=== PATIENT | female | born 1970 | race Caucasian/White ===

== ENCOUNTER 2018-10-16 06:00 | Day surgery (SDC) | payer OTHER ==
[~2018-10-16] VITALS: Ht 162.6 cm; Wt 96.2 kg
[~2018-10-16 06:00] MED LIST: ASCORBIC ACID500 M3 PO; CYCLOBENZAPRINE10 MG PO; FENOFIBRATE160 MG PO; GABAPENTIN300 MG PO; GEODON80 MG NG; GLIPIZIDE XL2.5 MG PO; KEFLEX500 MG PO; LEVOTHYROXINE50 MCG PO; LORAZEPAM1 MG PO; MELATONIN3 MG PO; METOPROLOL SUCC25 MG PO; PRILOSEC40 MG PO; PROZAC20 MG PO; ROSUVASTATIN CAL5 MG PO; VITAMIN D35000 UNIT PO; ZOCOR40 MG PO
--- NOTE | 2018-10-16 08:56 | NUR ---
10/16/18 0856 [facility] ARRIVED IN PACU SLEEPY WITH NO C/O'S. ABD SOFT. PASSING FLATUS. 0819 BLOOD SUGAR 134. 0825 AWAKE SITTING UP IN BED. OXYGEN REMOVED. SATS 99% ON RA. 0835 SIPPING ON JUICE. DC INSTRUCTIONS GIVEN TO PT/FAMILY.
--- NOTE | 2018-10-16 10:51 | NUR ---
PT RESTING IN BED, ALERT, ORIENTED AND SUPPORTED BY HER FAMILY. FIRST EGD, PREVIOUS SCOPES, AND SEEMED ALITTLE ANXIOUS. I GET THE FEELING HER FAMILY HAS SOMETHING TO DO WITH THIS. HER THANKED ME FOR COMING BY. I GAVE THEM A BLESSING, WILL FOLLOW NEEDED
--- NOTE | 2018-10-16 10:52 | OR ---
[facility] [address] [place], [place] [address] Signed DATE OF OPERATION: 10/16/2018 SURGEON: Zoey Jackson MD PREOPERATIVE DIAGNOSES: 1. Anemia. 2. Gastroesophageal reflux disease. 3. Heartburn. 4. Maternal great uncles x3, maternal grandmother and mother with colon cancer. 5. Change in bowel habits with diarrhea, change in constipation. POSTOPERATIVE DIAGNOSES: 1. Small sized hiatal hernia. 2. 4 mm polyp at 25 cm. PROCEDURES: 1. EGD with CLOtest and biopsy of the duodenum and antrum. 2. Colonoscopy with hot biopsy. ESTIMATED BLOOD LOSS: None. INDICATIONS: Pam is a 48-year-old female, asked to see me for both upper and lower endoscopy. She describes being anemic even back as a child. Currently, her hemoglobin is low, but her mean cell volume is fine. She has been on iron pills starting around the time of her pregnancies. She said the anemia is never really corrected itself. She talks about heartburn and acid reflux as well. She is taking omeprazole. She is also diabetic. In addition, she explained that she has three maternal great uncles, maternal grandmother and mother have all developed colon cancer. Her mother was 59 when she developed colon cancer and still alive today. She has also had a change in bowel habits for the last 6 months. She had a lifelong diarrhea, but now has constipation. She is not sure why. She stopped taking the iron pills and the constipation has remained. Consequently, she was asked to see me for both upper and lower endoscopy. I met with Pam in the office. I gave her pamphlets on both upper and lower endoscopy. We reviewed the nature of the 2 tests along with the risks including, but not limited to gas, bloating, crampy abdominal pain, bleeding, perforation, requiring surgery, and missed diagnosis. We also discussed the need for IV conscious sedation. Pam has a long list of medical issues as well as a long list of allergies. Consequently, we asked that an anesthesia provider help us with increased monitoring sedation with propofol. That proved to be a Electronically Signed By: ZOEY JACKSON MD 10/16/18 1052 PATIENT NAME: PAM BAER DWAYNE OPERATIVE REPORT DATE OF : 72 REPORT #: [id number] PHYSICIAN: ZOEY JACKSON MD PCP: FRANKO ORTIZ REPORT IS CONFIDENTIAL AND NOT TO BE RELEASED WITHOUT AUTHORIZATION [facility] [address] [place], [place] [address] Signed whittington decision. Pam had expressed understanding and wished to proceed. DESCRIPTION OF PROCEDURE: Pam was taken into our endoscopy suite and placed in the supine semi-recumbent position. The posterior oropharynx was anesthetized with Hurricaine spray. A bite block was utilized for the case. Pam was given IV propofol per our nurse building construction teacher. The adult gastroscope was introduced and advanced readily out into the third portion of the duodenum under direct visualization of camera without difficulty. We had taken a biopsy of the duodenum because of the prior history of diarrhea. Otherwise, the duodenum and pyloric channel looked unremarkable. Her stomach looked unremarkable. Upon retroflexion of the scope, she does have a small hiatal hernia. We did take a biopsy of the antrum for CLOtest as well as pathologic review. The scope was then withdrawn up through the area of the GE junction, which was compliant without stricture. There was no evidence of gastric or esophageal varices. She has mild disruption to the Z-line. There was no Hill's mucosa, no distal esophagitis. The middle and upper esophagus were unremarkable. After this, the gas was suctioned out and the gastroscope removed. Pam tolerated her upper endoscopy quite well. Pam was then rotated into the left lateral decubitus position. She was maintained on IV sedation with propofol per our nurse building construction teacher. A digital rectal exam was performed and this was unremarkable. The adult colonoscope was introduced and advanced under direct visualization of camera into the cecum itself. It took some extra sedation and abdominal compression in order to advance the scope. She had a couple of areas of liquid particulate stool matter. Most of that was suctioned and irrigated out. We could see the Crohn's foot, appendiceal orifice, and the ileocecal valve. We had taken pictures for photodocumentation. The scope was slowly withdrawn. She had just a small 4 mm polyp back at 25 cm. It was easily removed with the help of hot biopsy forceps. The rectum itself was unremarkable. Upon retroflexion of the scope, there was no additional pathology noted above the anal canal. After this, the gas was suctioned out and the colonoscope removed. Pam tolerated the lower endoscopy quite well. RECOMMENDATIONS: I will see Pam back in my office in 7 to 14 days to review her results. Zoey Jackson MD ALB/MODL /[id number] Electronically Signed By: ZOEY JACKSON MD 10/16/18 1052 PATIENT NAME: GRIFFOPAM [facility] OPERATIVE REPORT DATE OF : 72 REPORT #: [id number] PHYSICIAN: ZOEY JACKSON MD PCP: FRANKO ORTIZ REPORT IS CONFIDENTIAL AND NOT TO BE RELEASED WITHOUT AUTHORIZATION [facility] [address] [place] [place], [place] [address] Signed cc: MD Franko Han PA Copies: ZOEY JACKSON MD, KRISTIN H PA ~ Electronically Signed By: ZOEY JACKSON MD 10/16/18 1052 PATIENT NAME: PAM BAER DWAYNE OPERATIVE REPORT DATE OF : 72 REPORT #: [id number] PHYSICIAN: ZOEY JACKSON MD PCP: FRANKO ORTIZ REPORT IS CONFIDENTIAL AND NOT TO BE RELEASED WITHOUT AUTHORIZATION
== END 2018-10-16 08:45 | disposition home or self-care (01) ==
LOC: OPS 06:00 → DS 06:00 → OPS 06:45 → DS 06:45 → OPS 08:45
PROVIDERS: Colon & Rectal Surgery
PROC: 0DB98ZX Excision of Duodenum, Via Natural or Artificial Opening Endoscopic, Diagnostic (ICD-10-PCS; 2018-10-16)
PROC: 0DBE8ZZ Excision of Large Intestine, Via Natural or Artificial Opening Endoscopic (ICD-10-PCS; principal; 2018-10-16 06:45)
PROC: 0DB78ZX Excision of Stomach, Pylorus, Via Natural or Artificial Opening Endoscopic, Diagnostic (ICD-10-PCS; 2018-10-16 06:45)
DX: K63.5 Polyp of colon (principal); K29.50 Unspecified chronic gastritis without bleeding; K44.9 Diaphragmatic hernia without obstruction or gangrene; K21.9 Gastro-esophageal reflux disease without esophagitis; D64.9 Anemia, unspecified; Z80.0 Family history of malignant neoplasm of digestive organs; K59.00 Constipation, unspecified; E78.1 Pure hyperglyceridemia; E03.9 Hypothyroidism, unspecified; E11.9 Type 2 diabetes mellitus without complications; M79.7 Fibromyalgia; D50.9 Iron deficiency anemia, unspecified; Z88.5 Allergy status to narcotic agent; Z88.8 Allergy status to other drugs, medicaments and biological substances; Z79.899 Other long term (current) drug therapy; Z79.84 Long term (current) use of oral hypoglycemic drugs
CPT/HCPCS: 86677; J2704; J7120

== ENCOUNTER 2021-12-31 14:58 | Emergency (ER) | payer OTHER ==
[~2021-12-31] VITALS: Ht 162.6 cm; Wt 88.5 kg
[~2021-12-31 14:58] MED LIST changes: +ANTIFUNGAL30 G1 TOP; +ASPIRIN81 MG PO; +CELEBREX200 MG PO; +FRONT WHEELED WALKER XX; +HYDROXYZINE HCL25 MG PO; +LACTULOSE20 GM/30 M PO; +LIPITOR20 MG PO; +OMEGA-31000 MG PO; +UREA198 GM TOP; +ZIPRASIDONE HCL80 MG PO
--- OUTSIDE RECORDS SUMMARY | 2021-12-31 15:00 | XMS ---
PreManage Notification: TONI BAER Security Life Scientists Events No recent Security Events currently on file CRITERIA MET - [facility] - [facility] - 2 Visits in 30 Days CARE PROVIDERS There are no care providers on record at this time. Jenifer has no Care Guidelines for this patient. Jaky VISIT COUNT (12 MO.) [facility] NOTE: Visits indicate total known visits. ED/UCC VISIT TRACKING (12 MO.) 12/31/2021 14:59 [facility] [place] [facility] Emergency COMPLAINT: - CONSTIPATION, ALTERED MENTAL STATUS 12/28/2021 19:02 [facility] [place] TYPE: Emergency COMPLAINT: - STROKE SYMPTOMS INPATIENT VISIT TRACKING (12 MO.) 12/28/2021 19:03 [facility] [place] TYPE: Observation COMPLAINT: - ALTERED MENTAL STATUS, POSSIBLE SEIZURE [email or web address]
== END 2021-12-31 18:32 | disposition home or self-care (01) ==
LOC: ED 14:58
DX: R41.0 Disorientation, unspecified (principal); K72.90 Hepatic failure, unspecified without coma; E11.40 Type 2 diabetes mellitus with diabetic neuropathy, unspecified; Z91.018 Allergy to other foods; Z88.0 Allergy status to penicillin; Z88.5 Allergy status to narcotic agent; Z88.8 Allergy status to other drugs, medicaments and biological substances; Z79.899 Other long term (current) drug therapy; Z79.84 Long term (current) use of oral hypoglycemic drugs
CPT/HCPCS: 36415; 80053; 81001; 82140; 85025; 96361; 96374; 99284-25; J2405; J7040

== ENCOUNTER 2022-02-22 07:45 | Day surgery (SDC) | payer OTHER ==
[~2022-02-22] VITALS: Ht 162.6 cm; Wt 87.7 kg
[~2022-02-22 07:45] MED LIST changes: +8 HOUR650 MG PO; +ADULT LOW DOSE81 MG PO; +AMBIEN10 MG PO; +ATORVASTATIN CA20 MG PO; +CLONIDINE HCL0.1 MG PO; +FLUOXETINE HCL20 M1 PO; +IBU800 MG PO; +INVOKANA100 MG PO; +LORAZEPAM2 MG PO; +OXYBUTYNIN CHLOR5 MG PO; +ROPINIROLE HCL0.5 MG PO; +SIMVASTATIN40 MG PO
--- NOTE | 2022-02-22 10:03 | NUR ---
02/22/22 Scottie3 Margaret Hoover 0974-PATIENT ARRIVED TO PACU ON 4L NC ORAL AIRWAY IN PLACE. NONAROUSABLE. LAYING LEFT LATERAL ABDOMEN SOFT. IVF INFUSING. SR. 0959-PATIENT AROUSING TO VERBAL STIMULI OPENING EYES ORAL AIRWAY REMOVED. DENIES PAIN OR NAUSEA. 4L NC RR EVEN 100%
--- NOTE | 2022-02-22 12:57 | OR ---
[facility] [address] [place], [place] [address] Signed DATE OF OPERATION: 02/22/2022 SURGEON: Zoey Jackson MD PREOPERATIVE DIAGNOSES: 1. Chronic diarrhea and constipation. 2. Recent hepatitis with encephalopathy. 3. Small hiatal hernia and acid reflux. 4. Maternal great uncles x3 with colon cancer. 5. Maternal great grandmother with colon cancer. 6. Mother with colon cancer, age 59. 7. Chronic anemia. 8. Personal history of hyperplastic colonic polyps in 2019 at age 48. POSTOPERATIVE DIAGNOSES: 1. Small hiatal hernia. 2. Mild diffuse gastritis. 3. Minimal sigmoid diverticulosis. 4. Minimal internal and external hemorrhoids. PROCEDURES: 1. EGD with CLOtest and biopsies of the duodenum, pyloric bulb and antrum. 2. Colonoscopy with multiple random cold biopsies. ESTIMATED BLOOD LOSS: None. INDICATIONS: Pam is a 51-year-old female with a long history of diabetes, sleep apnea, chronic alternating diarrhea and constipation, acid reflux and a recent episode of hepatitis involving encephalopathy. She was in the hospital. Her blood work and ultrasound were nondiagnostic. She is apparently scheduled to see her toolman, Dr. Brito, in [place], [place]. She came to see me for upper and lower endoscopy back in 2019 at the age of 48. We know that all three of her maternal grand uncles had colon cancer. Her maternal great grandmother had colon cancer. Her mother had colon cancer at age 59. She remembers being anemic clear back to her childhood. She has never seen a engineering faculty to her knowledge. She required monitored anesthesia care due to her medical issues and her long list of allergies back in 2019. We did find a small hyperplastic polyp and a small hiatal hernia. Her CLOtest was negative for H pylori. We asked her to followup in 5 years for repeat colonoscopy due to her family history. Electronically Signed By: ZOEY JACKSON MD 02/22/22 1257 PATIENT NAME: PAM BAER OPERATIVE REPORT DATE OF : 72 REPORT #: [id number] PHYSICIAN: ZOEY JACKSON MD PCP: WYATT BULLOCK MD REPORT IS CONFIDENTIAL AND NOT TO BE RELEASED WITHOUT AUTHORIZATION [facility] [address] [place], [place] [address] Signed However, she had a recent episode of hepatitis and therefore has been asked to come back to repeat the upper and lower endoscopy. She wanted to expedite her care since she knows me here in [place], [place]. I met with her in the office along with her . I gave them pamphlets on both upper and lower endoscopy. We had reviewed the nature of the two tests. There is risk including, but not limited to gas bloating, crampy abdominal pain, bleeding, perforation requiring surgery, and missed diagnosis. We also reviewed the need for monitored anesthesia care. They had expressed understanding and wished to proceed. PROCEDURE NOTE: Pam was taken into our endoscopy suite and placed in a supine semi-recumbent position. The posterior oropharynx was anesthetized with lidocaine spray. A bite block was utilized for the case. She was given monitored anesthesia care with propofol per our nurse devops solutions architect. The adult gastroscope had been introduced and advanced under direct visualization of the camera into the third portion of the duodenum. The duodenum was unremarkable. We went ahead and took a biopsy of the duodenum due to her long history of diarrhea. The pyloric bulb showed minimal inflammatory changes and we took a biopsy from the pyloric bulb for pathologic review. There were no ulcerations in the pyloric bulb or the stomach. Stomach showed mild diffuse erythematous changes as well. We took a biopsy of the antrum for CLOtest as well as pathologic review. Upon retroflexion of the scope, we can once again just see a small hiatal hernia. The scope was withdrawn up through the area of the GE junction, which was compliant without stricture. There were no gastric or esophageal varices. Very minimal if any disruption to the Z-line. There was no Hill's mucosa. There was no distal esophagitis. The middle and upper esophagus were unremarkable. After this the gas had been suctioned out and the gastroscope removed. Pam tolerated the procedure quite well. Pam was rotated into the left lateral decubitus position. She was maintained on IV sedation with propofol per our nurse devops solutions architect. A digital rectal exam was performed and she does have small circumferential external hemorrhoids. She has good sphincter tone. There were no masses. The adult colonoscope had been introduced and advanced under direct visualization of the camera up into the cecum without difficulty. Her prep was quite excellent. We could see the appendiceal orifice and ileocecal valve. We took pictures throughout for photodocumentation. The scope was then slowly withdrawn. We saw few diverticula in the sigmoid colon. They were moderate in size, few in number, and scattered about. The rectum was unremarkable. Upon retroflexion of the scope, she does have minimal internal hemorrhoid columns as well. After this the gas was suctioned out and colonoscope removed. Pam tolerated the lower endoscopy quite well. RECOMMENDATIONS: I will see Pam back in my office in 7 to 14 days to review her results. Electronically Signed By: ZOEY JACKSON MD 02/22/22 1257 PATIENT NAME: PAM BAER OPERATIVE REPORT DATE OF : 72 REPORT #: [id number] PHYSICIAN: ZOEY JACSKON MD PCP: WYATT BULLOCK MD REPORT IS CONFIDENTIAL AND NOT TO BE RELEASED WITHOUT AUTHORIZATION [address] [place], [place] [address] Signed Zoey Jackson MD ALB/MODL /[id number] cc: MD Zoey Unger MD Dr. Philo Copies: WYATT BULLOCK MD, ANDREW L MD ~ Electronically Signed By: ZOEY JACKSON MD 02/22/22 1257 PATIENT NAME: PAM BAER OPERATIVE REPORT DATE OF : 72 REPORT #: [id number] PHYSICIAN: ZOEY JACKSON MD PCP: WYATT BULLOCK MD REPORT IS CONFIDENTIAL AND NOT TO BE RELEASED WITHOUT AUTHORIZATION
--- NOTE | 2022-02-23 14:36 | PATH ---
[facility] [address] [place], [place] [address] Signed SPECIMEN(S): A DUODENAL BIOPSY SPECIMEN(S): B ANTRUM/PYLORUS BULB BIOPSY SPECIMEN(S): C ANTRUM/PYLORUS BIOPSY SPECIMEN(S): D COLON BIOPSY SPECIMEN SOURCE: A. DUODENAL BIOPSY B. ANTRUM/PYLORUS BULB BIOPSY C. ANTRUM/PYLORUS BIOPSY D. COLON BIOPSY CLINICAL HISTORY: Chronic constipation/diarrhea, hepatitis with encephalopathy, GERD, chronic anemia, family history of colon CA. Post-op: internal/external hemorrhoids, diverticulosis. FINAL PATHOLOGIC DIAGNOSIS: A. 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 - Negative for increased intraepithelial lymphocytes or villous blunting. - Negative for dysplasia or malignancy. B. Designated "antrum/pylorus bulb", biopsy: - Duodenal mucosa with no histopathologic abnormality. - Negative for increased intraepithelial lymphocytes or villous blunting. - Negative for dysplasia or malignancy. C. Stomach, antrum/pylorus, biopsy: - Antral mucosa with minimal chronic, inactive gastritis. - Negative for Helicobacter organisms on HE stain. - Negative for dysplasia or malignancy. D. Colon, biopsy: - Colonic mucosa with no histopathologic abnormality. - Negative for active, chronic, or microscopic colitis. - Negative for dysplasia or malignancy. NAL:cml:C2NR MICROSCOPIC EXAMINATION: Histologic sections of all submitted blocks are examined by light microscopy. These findings, together with the gross examination, support the pathologic diagnosis. GROSS DESCRIPTION: PATIENT NAME: TONI BAER PATHOLOGY DATE OF : 72 REPORT #: [id number] PHYSICIAN: LUPE RODRIGUEZ PCP: WYATT BULLOCK MD REPORT IS CONFIDENTIAL AND NOT TO BE RELEASED WITHOUT AUTHORIZATION [facility] [address] [place], [place] [address] Signed Four specimens are received in four containers labeled with "CG". A. The specimen, labeled "CG, 1," and designated on the requisition "duodenum biopsy," is received in formalin and consists of one fragment of pink-gunderson tissue (0.5 cm in greatest dimension). The specimen is submitted entirely in cassette A1. B. The specimen, labeled "CG, 2," and designated on the requisition "antrum/pylorus bulb biopsy," is received in formalin and consists of one fragment of pink-gunderson tissue (0.2 cm in greatest dimension). The specimen is submitted entirely in cassette B1. C. The specimen, labeled "CG, 3," and designated on the requisition "antrum/pylorus," is received in formalin and consists of one fragment of pink-gunderson tissue (0.5 cm in greatest dimension). The specimen is submitted entirely in cassette C1. D. The specimen, labeled "CG, 4," and designated on the requisition "colon biopsy," is received in formalin and consists of three fragments of pink-gunderson tissue (0.2 to 0.6 cm in greatest dimension). The specimen is submitted entirely in cassette D1. AC (under the direct supervision of a pathologist) The Gross Description was prepared using a voice recognition system. The report was reviewed for accuracy; however, sound-alike word errors, addition and/or deletions may occur. If there is any question about this report, please contact Client Services. PERFORMING LABORATORY: The technical component was performed by [employer], [address] [place] [id number] (CLIA# [id number]). Professional interpretation was performed by [employer], [facility], [address] [facility] [address] [address] (CLIA# [id number]). Diagnostician: Dayanara Santana MD Pathologist Electronically Signed 02/23/2022 Copies: ~ PATIENT NAME: TONI BAER DWAYNE PATHOLOGY DATE OF : 72 REPORT #: [id number] PHYSICIAN: LUPE PATHOLOGY PCP: WYATT BULLOCK MD REPORT IS CONFIDENTIAL AND NOT TO BE RELEASED WITHOUT AUTHORIZATION
== END 2022-02-22 10:35 | disposition home or self-care (01) ==
LOC: OPS 07:45 → DS 07:45 → OPS 09:00 → DS 12:00 → OPS 13:15
PROVIDERS: ATTEND Colon & Rectal Surgery
PROC: 0DB78ZX Excision of Stomach, Pylorus, Via Natural or Artificial Opening Endoscopic, Diagnostic (ICD-10-PCS; 2022-02-22)
PROC: 0DB68ZX Excision of Stomach, Via Natural or Artificial Opening Endoscopic, Diagnostic (ICD-10-PCS; 2022-02-22)
PROC: 0DBE8ZX Excision of Large Intestine, Via Natural or Artificial Opening Endoscopic, Diagnostic (ICD-10-PCS; 2022-02-22)
PROC: 0DB98ZX Excision of Duodenum, Via Natural or Artificial Opening Endoscopic, Diagnostic (ICD-10-PCS; principal; 2022-02-22 09:00)
DX: K29.50 Unspecified chronic gastritis without bleeding (principal); K52.9 Noninfective gastroenteritis and colitis, unspecified; K59.00 Constipation, unspecified; K75.9 Inflammatory liver disease, unspecified; D64.9 Anemia, unspecified; K44.9 Diaphragmatic hernia without obstruction or gangrene; K57.30 Diverticulosis of large intestine without perforation or abscess without bleeding; K64.8 Other hemorrhoids; K64.4 Residual hemorrhoidal skin tags; Z80.0 Family history of malignant neoplasm of digestive organs
CPT/HCPCS: 00731; 36415; 84703; 87077; 88305; J2001; J2704; J3010; J7121

== ENCOUNTER 2022-04-17 16:47 | Emergency (ER) | payer OTHER ==
[~2022-04-17] VITALS: Ht 162.6 cm; Wt 87.5 kg
--- OUTSIDE RECORDS SUMMARY | 2022-04-17 16:50 | XMS ---
PreManage Notification: TONI BAER Security Gerontological Nurse Practitioner Events No recent Security Events currently on file CRITERIA MET - [facility] CARE PROVIDERS There are no care providers on record at this time. Jenifer has no Care Guidelines for this patient. Jaky VISIT COUNT (12 MO.) 3 ESTELA Jackson TOTAL 3 NOTE: Visits indicate total known visits. ED/C VISIT TRACKING (12 MO.) 04/17/2022 16:48 [facility] [place] TYPE: Emergency COMPLAINT: - WOUND CHECK 12/31/2021 14:59 [facility] [place] TYPE: Emergency COMPLAINT: - CONSTIPATION, ALTERED MENTAL STATUS DIAGNOSES: - Other terminal carman (current) drug therapy - Allergy status to other drugs, medicaments and biological substances - Allergy status to narcotic agent - terminal carman (current) use of oral hypoglycemic drugs - Allergy to other foods - Hepatic failure, unspecified without coma - Type 2 diabetes mellitus with diabetic neuropathy, unspecified - Disorientation, unspecified - Allergy status to penicillin 12/28/2021 19:02 [facility] [place] TYPE: Emergency COMPLAINT: - STROKE SYMPTOMS INPATIENT VISIT TRACKING (12 MO.) 12/28/2021 19:03 [facility] [place] TYPE: Observation COMPLAINT: - ALTERED MENTAL STATUS, POSSIBLE SEIZURE DIAGNOSES: - Gastro-esophageal reflux disease without esophagitis - halfway (current) use of oral hypoglycemic drugs - Mixed hyperlipidemia - Type 2 diabetes mellitus with diabetic polyneuropathy - Hypothyroidism, unspecified - Nonalcoholic steatohepatitis (OZUNA) - Disorder of urea cycle metabolism, unspecified - Contact with and (suspected) exposure to COVID-19 - Hypomagnesemia - Altered mental status, unspecified - Allergy status to narcotic agent - Acute and subacute hepatic failure without coma - Essential (primary) hypertension - Allergy status to penicillin - Iron deficiency anemia secondary to blood loss (chronic) - Allergy status to other drugs, medicaments and biological substances - Schizotypal disorder [email or web address]
[2022-04-17] MEDS ORDERED: CEPHALEXIN500 M1 PO (20:14)
== END 2022-04-17 20:35 | disposition home or self-care (01) ==
LOC: ED 16:47
DX: L27.0 Generalized skin eruption due to drugs and medicaments taken internally (principal); T36.4X5A Adverse effect of tetracyclines, initial encounter; E11.42 Type 2 diabetes mellitus with diabetic polyneuropathy; M19.90 Unspecified osteoarthritis, unspecified site; Z88.8 Allergy status to other drugs, medicaments and biological substances; Z88.0 Allergy status to penicillin; Z88.5 Allergy status to narcotic agent; Z88.1 Allergy status to other antibiotic agents; Z91.013 Allergy to seafood; Z79.899 Other long term (current) drug therapy
CPT/HCPCS: 90471; 90714; 99282-25; A9270

== ENCOUNTER 2022-09-22 14:34 | Emergency (ER) | payer OTHER ==
[~2022-09-22] VITALS: Ht 162.6 cm; Wt 87.5 kg
[~2022-09-22 14:34] MED LIST changes: +CEPHALEXIN500 M1 PO
--- OUTSIDE RECORDS SUMMARY | 2022-09-22 14:36 | XMS ---
PreManage Notification: TONI BAER Security Component Engineer Events No recent Security Events currently on file CRITERIA MET - [facility] CARE PROVIDERS -Madeline- Dentist: Grocery Sacker [facility] PHONE: [phone] [employer] Steep Tender/Supervisor [employer] 07/06/2022-Current PHONE: [phone] Jenifer has no Care Guidelines for this patient. EFredi VISIT COUNT (12 MO.) Khang Jackson TOTAL 4 NOTE: Visits indicate total known visits. ED/UCC VISIT TRACKING (12 MO.) 09/22/2022 14:35 [facility] [place] TYPE: Emergency COMPLAINT: - LIVER ISSUE, AMMONIA LEVELS UP 04/17/2022 16:48 [facility] [place] TYPE: Emergency COMPLAINT: - WOUND CHECK DIAGNOSES: - Unspecified osteoarthritis, unspecified site - Type 2 diabetes mellitus with diabetic polyneuropathy - Allergy status to penicillin - Allergy status to other drugs, medicaments and biological substances - Allergy status to other antibiotic agents - Allergy status to narcotic agent - Adverse effect of tetracyclines, initial encounter - Adverse effect of tetracyclines, initial encounter - Generalized skin eruption due to drugs and medicaments taken internally - Rash and other nonspecific skin eruption - Other intermediate (current) drug therapy - Allergy to seafood 12/31/2021 14:59 [facility] [place] TYPE: Emergency COMPLAINT: - CONSTIPATION, ALTERED MENTAL STATUS DIAGNOSES: - Allergy status to other drugs, medicaments and biological substances - Allergy status to narcotic agent - skilled nursing (current) use of oral hypoglycemic drugs - Allergy to other foods - Hepatic failure, unspecified without coma - Type 2 diabetes mellitus with diabetic neuropathy, unspecified - Disorientation, unspecified - Allergy status to penicillin - Other termite renewal inspector (current) drug therapy 12/28/2021 19:02 [facility] Lopez [place] TYPE: Emergency COMPLAINT: - STROKE SYMPTOMS INPATIENT VISIT TRACKING (12 MO.) 12/28/2021 19:03 [facility] [place] TYPE: Observation COMPLAINT: - ALTERED MENTAL STATUS, POSSIBLE SEIZURE DIAGNOSES: - Mixed hyperlipidemia - Type 2 diabetes [...] medicaments and biological substances - Schizotypal disorder - Gastro-esophageal reflux disease without esophagitis - skilled nursing (current) use of oral hypoglycemic drugs [email or web address]
[2022-09-22] MEDS ORDERED: METHOCARBAMOL500 MG PO (15:32)
[2022-09-22] MEDS ORDERED: ZIPRASIDONE HCL80 MG PO (15:32)
[2022-09-22] MEDS ORDERED: METOPROLOL SUCC25 MG PO (15:33)
[2022-09-22] MEDS ORDERED: XIFAXAN550 MG PO (17:15)
== END 2022-09-22 17:27 | disposition home or self-care (01) ==
LOC: ED 14:34
DX: K76.82 Hepatic encephalopathy (principal); E11.42 Type 2 diabetes mellitus with diabetic polyneuropathy; M19.90 Unspecified osteoarthritis, unspecified site; Z88.0 Allergy status to penicillin; Z88.8 Allergy status to other drugs, medicaments and biological substances; Z88.5 Allergy status to narcotic agent; Z91.048 Other nonmedicinal substance allergy status; Z79.899 Other long term (current) drug therapy
CPT/HCPCS: 36415; 80053; 81001; 82140; 85025; 96374; 99284-25; J2405; J7030

== ENCOUNTER 2022-09-29 17:39 | Emergency (ER) | payer OTHER ==
[~2022-09-29] VITALS: Ht 162.6 cm; Wt 87.5 kg
[~2022-09-29 17:39] MED LIST changes: +METHOCARBAMOL500 MG PO; +XIFAXAN550 MG PO
--- OUTSIDE RECORDS SUMMARY | 2022-09-29 17:43 | XMS ---
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 EFredi VISIT COUNT (12 MO.) [address] [place] [address] TOTAL 5 NOTE: Visits indicate total known visits. ED/UCC VISIT TRACKING (12 MO.) 09/29/2022 17:[address] [facility] [place] TYPE: Emergency COMPLAINT: - FEVER, HIGH HEART RATE, ABNORMAL LABS 09/22/2022 14:[address] [facility] [place] TYPE: Emergency COMPLAINT: - LIVER ISSUE, AMMONIA LEVELS UP DIAGNOSES: - Allergy status to penicillin - Hepatic encephalopathy - Allergy status to narcotic agent - Other ferry terminal agent (current) drug therapy - Allergy status to other drugs, medicaments and biological substances - Type 2 diabetes mellitus with diabetic polyneuropathy - Other nonmedicinal substance allergy status - Unspecified osteoarthritis, unspecified site 04/17/2022 16:48 [facility] [place] TYPE: Emergency COMPLAINT: - WOUND CHECK DIAGNOSES: - Type 2 diabetes mellitus with diabetic [...] and other nonspecific skin eruption - Other senior care (current) drug therapy - Allergy to seafood - Unspecified osteoarthritis, unspecified site 12/31/2021 14:59 [facility] [place] TYPE: Emergency COMPLAINT: - CONSTIPATION, ALTERED MENTAL STATUS DIAGNOSES: - Allergy status to other drugs, medicaments and biological substances - Allergy status to narcotic agent - [facility] (current) use of oral hypoglycemic drugs - Allergy to other foods - Hepatic failure, unspecified without coma - Type 2 diabetes mellitus with diabetic neuropathy, unspecified - Disorientation, unspecified - Allergy status to penicillin - Other ferry terminal agent (current) drug therapy 12/28/2021 19:02 [facility] [place] TYPE: Emergency COMPLAINT: - STROKE SYMPTOMS INPATIENT VISIT TRACKING (12 MO.) 12/28/2021 19:03 [facility] [place] TYPE: Observation COMPLAINT: - ALTERED MENTAL STATUS, POSSIBLE SEIZURE DIAGNOSES: - Type 2 diabetes mellitus with diabetic polyneuropathy - Hypothyroidism, unspecified - Nonalcoholic steatohepatitis (OZUNA) - Disorder of urea cycle metabolism, unspecified - Contact with and (suspected) exposure to COVID- - Hypomagnesemia - Altered mental status, unspecified - Allergy status to narcotic agent - Acute and subacute hepatic failure without coma - Essential (primary) hypertension - Allergy status to penicillin - Iron deficiency anemia secondary to blood loss (chronic) - Allergy status to other drugs, medicaments and biological substances - Schizotypal disorder - Gastro-esophageal reflux disease without esophagitis - 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
--- NOTE | 2022-09-30 07:33 | EKG ---
[facility] [address] [facility] [place], [place] [address] Signed Sinus tachycardia Otherwise normal ECG When compared with ECG of 16-FEB-2022 08:48, QT has shortened Confirmed by RICHAR NOVA MD ([id number]) on 09/30/2022 7:33:37 AM Electronically Signed By: RICHAR NOVA MD 09/30/22 0733 PATIENT NAME: TONI BAER DWAYNE Electrocardiogram DATE OF : 72 PHYSICIAN: RICHAR NOVA MD REPORT #: [id number] REPORT IS CONFIDENTIAL AND NOT TO BE RELEASED WITHOUT AUTHORIZATION
== END 2022-09-29 23:11 | disposition home or self-care (01) ==
LOC: ED 17:39
DX: E72.20 Disorder of urea cycle metabolism, unspecified (principal); D64.9 Anemia, unspecified; D72.819 Decreased white blood cell count, unspecified; E11.42 Type 2 diabetes mellitus with diabetic polyneuropathy; M19.90 Unspecified osteoarthritis, unspecified site; Z88.8 Allergy status to other drugs, medicaments and biological substances; Z88.0 Allergy status to penicillin; Z88.1 Allergy status to other antibiotic agents; Z88.5 Allergy status to narcotic agent; Z79.899 Other long term (current) drug therapy; Z20.822 Contact with and (suspected) exposure to COVID-19
CPT/HCPCS: 36415; 70450; 71045; 80053; 81003; 82140; 83605; 85025; 85610; 85730; 87502; 93005; 93010; 99284-25; U0003

== ENCOUNTER 2023-11-30 13:53 | Observation (INO) | payer OTHER ==
[~2023-11-30] VITALS: Ht 162.6 cm; Wt 90.6 kg
[~2023-11-30 13:53] MED LIST changes: +ENULOSE10 GM/15 M PR; +FERROUS GLUCON324 M1 PO; +GEODON80 MG PO; +GLIPIZIDE XL10 MG PO; +LASIX40 MG PO; +MIRALAX17 GM PO; +OMEGA-3 FISH O1 EAC4 PO; +OMEPRAZOLE20 MG PO; +OXYBUTYNIN CHLOR5 M1 PO; +SPIRONOLACTONE50 MG PO; +ZOLOFT100 MG PO
--- OUTSIDE RECORDS SUMMARY | 2023-11-30 13:57 | XMS ---
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 E.D. VISIT COUNT (12 MO.) 2 [facility] TOTAL 2 NOTE: Visits indicate total known visits. ED/UCC VISIT TRACKING (12 MO.) 11/30/2023 13:54 [facility] [place] TYPE: Emergency COMPLAINT: - HEART RACING, VOMITNG 10/17/2023 12:58 [facility] [place] TYPE: Emergency COMPLAINT: - HEART HURTS, COUGH, WEAK, COLD DIAGNOSES: - Allergy status to narcotic agent - Allergy status to other antibiotic agents - Allergy status to other drugs, medicaments and biological substances - Allergy status to penicillin - Allergy to other foods - Cough, unspecified - Decreased white blood cell count, unspecified - Hepatic encephalopathy - Hepatic failure, unspecified without coma - Hormone replacement therapy - Other correction (current) drug therapy - Parkinson's disease without dyskinesia, without mention of fluctuations - Schizoaffective disorder, unspecified - Type 2 diabetes mellitus with diabetic polyneuropathy - Unspecified cirrhosis of liver - Unspecified osteoarthritis, unspecified site INPATIENT VISIT TRACKING (12 MO.) No inpatient visits to display in this time frame [email or web address]
[2023-11-30 14:13] LABS: BASOPHILS 0.4 % (0-2); EOSINOPHILS 2.5 % (0-6); HEMOGLOBIN 12.2 g/dL (12.0-18.0); LYMPHOCYTES 15.9 % (24-44); MCH 28.5 (27-36); MCHC 34.8 g/dl (30-36); MCV 81.8 fl (81-99); MONOCYTES 5.5 % (0-12); NEUTROPHILS 75.7 % (39-80); PLATELET COUNT 107 K/uL (140-440); RBC 4.28 M/ul (4.3-5.7); RDW 15.2 (10.5-15.0)
[2023-11-30] MEDS ORDERED: VITAMIN D31250 MC1 PO (14:14)
[2023-11-30 14:36] LABS: ALBUMIN 3.7 g/dL (3.4-5.0); ALBUMIN/GLOBULIN RATIO 0.79 (1.1-2.4); ANION GAP 15.1 (7-21); BILIRUBIN, TOTAL 1.3 ng/dL (0.2-1.0); BUN/CREATININE RATIO 14.54 (6.0-28.6); CALCIUM 9.4 mg/dL (8.5-10.1); CREATININE, SERUM 1.1 mg/dL (0.55-1.02); POTASSIUM 4.1 mmol/L (3.5-5.1); PROTEIN, TOTAL 8.4 g/dL (6.4-8.2); TSH, 3RD GENERATION 1.16 uIU/mL (0.358-3.740)
[2023-11-30 15:20] LABS: BILIRUBIN, URINE NEGATIVE (negative); BLOOD/HGB, URINE NEGATIVE (Negative); KETONE, URINE NEGATIVE (Negative); LEUK ESTERASE, URINE NEGATIVE (negative); NITRITE, URINE NEGATIVE (negative)
[2023-11-30] MEDS ORDERED: LACTULOSE 10 GM/15 ML ML PR ONE (16:30)
[2023-11-30] MEDS ORDERED: LACTULOSE 10 GM/15 ML ML PR PRN (17:30)
--- NOTE | 2023-11-30 17:50 | NUR ---
PT BROUGHT TO PT MS ROOM 121 VIA STRETCHER. PT WALKED TO THE BATHROOM WITH DAUGHTER PER DAUGHTER REQUEST TO HELP, WITH A CANE, 1PA. WAS ABLE TO VOID W/O DIFFICULTY. ORIENTED TO CALL LIGHT, WITHIN REACH. WATER PROVIDED.
[2023-11-30] MEDS ORDERED: ondansetron HCL 4 MG/2 ML VIAL IV PRN (18:00)
[2023-11-30] MEDS ORDERED: ACETAMINOPHEN 500 MG TAB PO PRN (18:00)
[2023-11-30] MEDS ORDERED: methocarbamoL 500 MG TABLET PO PRN (18:00)
[2023-11-30 18:02] VITALS: BP 136/64
[2023-11-30] MEDS ORDERED: DEXTROSE 50% 50 ML SYR IV PRN ×2 (18:30)
[2023-11-30] MEDS ORDERED: DEXTROSE 5% 1,000 ML IV PRN (18:30)
[2023-11-30] MEDS ORDERED: IBLOOD GLUCOSE TEST STRIP 1 EA TEST XX PRN (18:30)
[2023-11-30] MEDS ORDERED: GLUCAGON,HUMAN RECOMBINANT 1 MG/ML VIAL SUB-Q PRN (18:30)
[2023-11-30] MEDS ORDERED: SODIUM CHLORIDE 0.9% 1,000 ML IV SCH (18:30)
--- NOTE | 2023-11-30 20:48 | NUR ---
DR ARAIZA NOTIFIED OF PTS MED UPDATES, STATED OK TO CHANGE THEM - ZIPRAZIDON 80 MG AM AND 20MG QHS PO, TOPROL 25MG BID PO, CELEBREX 200MG BID PO. ABOVE MEDS PER FAMILY
[2023-11-30 20:58] VITALS: BP 118/62
[2023-11-30 20:59] VITALS: BP 118/62
[2023-11-30] MEDS ORDERED: INSULIN LISPRO 100 UNIT/ML ML SUB-Q SCH (21:00)
[2023-11-30] MEDS ORDERED: IBLOOD GLUCOSE TEST STRIP 1 EA TEST VI SCH (21:00)
[2023-11-30] MEDS ORDERED: MELATONIN 3 MG TAB PO PRN (21:00)
[2023-11-30] MEDS ORDERED: CELECOXIB 200 MG CAP PO SCH (21:38)
[2023-11-30] MEDS ORDERED: METOPROLOL TARTRATE 25 MG TAB PO SCH (21:53)
--- NOTE | 2023-11-30 22:03 | NUR ---
talked to nazia Yang to nasra CPOX bridge order from ER
--- NOTE | 2023-11-30 22:29 | NUR ---
HS MEDS GIVEN AT THIS TIME, TOOK W/O PROBLEMS
--- NOTE | 2023-12-01 00:48 | NUR ---
resting, eyes closed, on room air. turns and repositions self in bed. IVF infusing. rooming in
[2023-12-01 01:00] VITALS: BP 133/54
[2023-12-01 01:04] VITALS: BP 133/54
--- NOTE | 2023-12-01 01:05 | NUR ---
c/o feeling nauseated, medicated with zofran 4mg IV. crackers and pudin given on reuest too. Coop with second assessment, alet and oriented to all. at bedside
--- NOTE | 2023-12-01 03:24 | NUR ---
Resting, eyes closed, no s/s distress, IVF infusing, roomin in
[2023-12-01 05:09] LABS: MCH 28.3 (27-36); PLATELET COUNT 90 K/uL (140-440); RDW 15.2 (10.5-15.0)
[2023-12-01 05:12] LABS: BASOPHILS 0.4 % (0-2); EOSINOPHILS 3.1 % (0-6); HEMATOCRIT 32.1 % (35.0-50.0); LYMPHOCYTES 34.4 % (24-44); MCHC 34.3 g/dl (30-36); MCV 82.4 fl (81-99); MONOCYTES 6.7 % (0-12); NEUTROPHILS 55.4 % (39-80)
--- NOTE | 2023-12-01 05:12 | EKG ---
[facility] [address] [facility] [place], [place] [address] Signed Normal sinus rhythm Normal ECG When compared with ECG of 17-OCT-2023 13:20, No significant change was found Confirmed by Khushi Lora ([id number]) on 12/01/2023 5:12:10 AM Electronically Signed By: KHUSHI LORA MD 12/01/23511 PATIENT NAME: TONI BAER DWAYNE Electrocardiogram DATE OF : 72 PHYSICIAN: KHUSHI LORA MD REPORT #: [id number] REPORT IS CONFIDENTIAL AND NOT TO BE RELEASED WITHOUT AUTHORIZATION
[2023-12-01 05:18] VITALS: BP 124/51
[2023-12-01 05:22] LABS: ALBUMIN 3.3 g/dL (3.4-5.0); ALBUMIN/GLOBULIN RATIO 0.8 (1.1-2.4); ANION GAP 11.6 (7-21); BILIRUBIN, TOTAL 1.1 ng/dL (0.2-1.0); BUN/CREATININE RATIO 17.54 (6.0-28.6); CALCIUM 8.7 mg/dL (8.5-10.1); CREATININE, SERUM 1.14 mg/dL (0.55-1.02); POTASSIUM 3.6 mmol/L (3.5-5.1); PROTEIN, TOTAL 7.4 g/dL (6.4-8.2)
--- NOTE | 2023-12-01 05:29 | NUR ---
PT AWAKES EASILY, ALERT AND ORIENTED. EXCEPT TO TOWN AND THEN RECALLED IT. GOES BACK. IVF INFUSING, TURNS AND REPOSITIONS IN BED, UP TO BRP WITH HUSBANDS HELP X1 THIS SHIFT, USES A CANE AT BASELINE. HAS NOT NEEDED LACTULOSE PT HAS BEEN BASICALLY ALERT AND ORIENTED TO 99% OF QUESTIONS ASKED. oN ROOM AIR. CLEAR LUNGS, NO C/O CP OR EXERTION
[2023-12-01] MEDS ORDERED: LEVOTHYROXINE SODIUM 50 MCG TAB PO SCH (06:00)
--- NOTE | 2023-12-01 07:10 | NUR ---
REPORT RECEIVED FROM TRAN PUENTES. PT SITTING UP IN BED. DR. ARAIZA IN ROOM TALKING WITH PT AND PTs . PLAN MADE TO GIVE LACTULOSE AND PT TO DC HOME. PT AND PTs AGREEABLE. PT AND PTs DENY ANY OTHER NEEDS FROM THIS RN AT THIS TIME. CALL LIGHT IN REACH. IV INFUSING WNL.
[2023-12-01] MEDS ORDERED: ZIPRASIDONE HCL20 MG PO (07:58)
[2023-12-01] MEDS ORDERED: METOPROLOL TART25 MG PO (08:00)
[2023-12-01] MEDS ORDERED: FERROUS SULFATE 325 MG TAB PO SCH (08:00)
[2023-12-01] MEDS ORDERED: OXYBUTYNIN CHLOR5 MG PO (08:01)
--- NOTE | 2023-12-01 08:16 | NUR ---
IN TO ADMINISTER MEDICAITON, SEE MAR. PT TAKES PO MEDICAITON WITH NO ISSUES. HOLDING METOPROLOL, LASIX AND SPIRONOLACTONE AND WILL TALK TO DR. ARAIZA REGARDING PTs BP. PT A&O TO SELF. ASKED PT WHAT THE DATE IS AND PT STATES "I DON'T KNOW." ASKED PT IF PT KNOWS THE YEAR AND PT STATES "2022." INFORMED PT THAT THE YEAR IS 2023. PT REQUESTING TO WAIT UNTIL AFTER BREAKFAST TO DO LATCULOSE MEDICATION. ASKED PT TO CALL WHEN DONE AND THIS RN WILL COME IN AND ADMINISTER LACTULOSE. PT AND PTs AGREEABLE. BREAKFAST TRAY ARRIVES. PT AND PTs DENY ANY OTHER NEEDS AT THIS TIME. CALL LIGHT IN REACH.
--- NOTE | 2023-12-01 08:35 | NUR ---
THIS RN TALKED TO DR. ARAIZA REGARDING PTs B/P TO ASK IF IT IS STILL ALRIGHT TO GIVE METOPROLOL, LASIX AND SPIRONOLACTONE. PER DR. ARAIZA "HOLD THE METOPROLOL, IT IS OKAY TO GIVE LASIX AND SPIRONOLACTONE." VERIFIED WITH READBACK. PT TAKES PO MEDICATIONS WITH NO ISSUES, SEE MAR. BREAKFAST ARRIVES. PT DENIES ANY OTHER NEEDS AT THIS TIME. IN ROOM. CALL LIGHT IN REACH.
[2023-12-01] MEDS ORDERED: METOPROLOL SUCCINATE 25 MG TABCR PO SCH (09:00)
[2023-12-01] MEDS ORDERED: PANTOPRAZOLE SODIUM 40 MG TABEC PO SCH (09:00)
[2023-12-01] MEDS ORDERED: GABAPENTIN 300 MG CAP PO SCH (09:00)
[2023-12-01] MEDS ORDERED: SERTRALINE HCL 100 MG TAB PO SCH (09:00)
[2023-12-01] MEDS ORDERED: FUROSEMIDE 40 MG TAB PO SCH (09:00)
[2023-12-01] MEDS ORDERED: ZIPRASIDONE HCL 80 MG PO SCH ×2 (09:00)
[2023-12-01] MEDS ORDERED: oxyBUTYnin chloride 5 MG TAB PO SCH (09:00)
[2023-12-01] MEDS ORDERED: SPIRONOLACTONE 25 MG TAB PO SCH (09:00)
[2023-12-01] MEDS ORDERED: ZIPRASIDONE HCL80 MG PO (09:27)
[2023-12-01] MEDS ORDERED: XIFAXAN550 MG PO (09:29)
[2023-12-01] MEDS ORDERED: INSULIN AS100 UNIT/3 SUB-Q (09:30)
[2023-12-01] MEDS ORDERED: INSULIN GL300 UNIT/1 SUB-Q (09:31)
[2023-12-01] MEDS ORDERED: MULTI VITAMIN1 EACH PO (09:31)
[2023-12-01] MEDS ORDERED: FISH OIL 1,0001 EACH PO (09:31)
[2023-12-01] MEDS ORDERED: ENULOSE10 GM/15 M PO ×2 (09:32→10:39)
--- NOTE | 2023-12-01 09:56 | NUR ---
CALL TO TARA RODRIGUEZ LEFT TO INFORM THAT PHARMACY HAS COMPLETED MED REC AND DISCHARGE ORDERS/MED REC CAN NOW BE COMPLETED.
[2023-12-01 11:07] VITALS: BP 101/44
--- NOTE | 2023-12-01 11:35 | NUR ---
IN TO ROUND ON PT AND TO ADMINISTER LACTULOSE PER RECTUM, SEE MAR. PT SITTING UP IN RECLINER UPON THIS RN ENTERING ROOM. PT AMBULATES WITH CANE FROM RECLINER TO BED. PT LAYS ON LEFT SIDE. LACTULOSE DILUTED WITH 700ML WATER AND ADMINISTERED. PT TOLERATES WELL. ASSESSMENT COMPLETE. LUNG SOUNDS CLEAR. BOWEL TONES ACTIVE. PT REPORTING PAIN 5/10 AND STATES "IT IS MUCH BETTER." PT STATES "NO MORE THAN NORMAL" WHEN ASKED ABOUT NUMBNESS OR TINGLING. PT A&O TO SELF, PLACE AND DATE. IV REMOVED WNL. DC INSTRUCTIONS VERBAL AND WRITTEN PROVIDED. PTs VERBALIZES UNDERSTANDING, QUESTIONS ANSWERED. BELONGINGS RETURNED. PTs IN ROOM AND SIGNS PAPERWORK. PT REPORTING TOILETING NEEDS. SBA WITH CANE FROM BED TO RESTROOM. VOID AND BM NOTED. SBA WITH CANE TO RECLINER. PT AND PTs DENY ANY OTHER NEEDS AT THIS TIME. CALL LIGHT IN REACH.
--- NOTE | 2023-12-01 11:37 | NUR ---
THIS RN CALLED TO ASK PHARMACY TO COME AND EDUCATE PTs AND FAMILY AND PT ON LACTULOSE MEDICATION DOSE CHANGE.
[2023-12-01] MEDS ORDERED: PHARMACY RENAL DOSE ADJUSTMENT 1 DOSE MISC PO SCH (12:00)
== END 2023-12-01 12:10 | disposition home or self-care (01) ==
LOC: ED 13:53 → MS 13:55
PROVIDERS: Emergency Medicine; ADMIT Family Medicine; ATTEND Family Medicine
DX: K76.82 Hepatic encephalopathy (principal); E72.20 Disorder of urea cycle metabolism, unspecified; D69.6 Thrombocytopenia, unspecified; E03.9 Hypothyroidism, unspecified; F25.9 Schizoaffective disorder, unspecified; E66.9 Obesity, unspecified; K75.81 Nonalcoholic steatohepatitis (NASH); N17.9 Acute kidney failure, unspecified; M79.7 Fibromyalgia; K21.9 Gastro-esophageal reflux disease without esophagitis; I10 Essential (primary) hypertension; R32 Unspecified urinary incontinence; Z88.0 Allergy status to penicillin; Z88.8 Allergy status to other drugs, medicaments and biological substances; Z79.899 Other long term (current) drug therapy; Z79.4 Long term (current) use of insulin
CPT/HCPCS: 36415; 71045; 80053; 81003; 82140; 83036; 83605; 83690; 83880; 84439; 84443; 84484; 85025; 93005; 93010; A9270; J1815; J2405; J7030

== ENCOUNTER 2024-02-22 02:36 | Inpatient (IN) | payer OTHER ==
[~2024-02-22] VITALS: Ht 162.6 cm; Wt 90.3 kg
[~2024-02-22 02:36] MED LIST changes: +ENULOSE10 GM/15 M PO; +FISH OIL 1,0001 EACH PO; +INSULIN AS100 UNIT/3 SUB-Q; +INSULIN GL300 UNIT/1 SUB-Q; +METOPROLOL TART25 MG PO; +MULTI VITAMIN1 EACH PO; +VITAMIN D31250 MC1 PO; +ZIPRASIDONE HCL20 MG PO
[2024-02-22] MEDS ORDERED: DEXTROSE 50% 50 ML SYR IV PRN ×2 (07:30)
[2024-02-22] MEDS ORDERED: DEXTROSE 5% 1,000 ML IV PRN (07:30)
[2024-02-22] MEDS ORDERED: IBLOOD GLUCOSE TEST STRIP 1 EA TEST XX PRN (07:30)
[2024-02-22] MEDS ORDERED: METOCLOPRAMIDE HCL 10 MG/2 ML SDV IV PRN (07:30)
[2024-02-22] MEDS ORDERED: LACTATED RINGER'S 1,000 ML IV ONE (07:30)
[2024-02-22] MEDS ORDERED: METOCLOPRAMIDE HCL 5 MG TAB PO PRN (07:30)
[2024-02-22] MEDS ORDERED: GLUCAGON,HUMAN RECOMBINANT 1 MG/ML VIAL SUB-Q PRN (07:30)
[2024-02-22] MEDS ORDERED: ACETAMINOPHEN 500 MG TAB PO PRN (07:30)
[2024-02-22] MEDS ORDERED: INSULIN LISPRO 100 UNIT/ML ML SUB-Q SCH ×2 (08:00)
[2024-02-22] MEDS ORDERED: HYDROmorphone HCL 1 MG/ML SYR IV PRN (08:00)
[2024-02-22] MEDS ORDERED: IBLOOD GLUCOSE TEST STRIP 1 EA TEST XX SCH ×2 (08:00)
[2024-02-22] MEDS ORDERED: LORazepam 1 MG TAB PO PRN (09:00)
--- NOTE | 2024-02-22 12:20 | NUR ---
ASSUMED CARE OF PATIENT, REPORT RECEIVED FROM DALE MAYFIELD, ALL QUESTIONS ANSWERED. PT LYING IN BED, DROWSY BUT AWAKENS EASILY. CLEAR LUNG SOUNDS, ACTIVE BOWEL TONES. PT C/O ABD PAIN, DAUGHTER, SHABANA, STATES ABD PAIN IS NOT CHRONIC. DISCUSSED PLAN OF CARE AND MEDICATIONS. PT AND DAUGHTER VERBALIZE UNDERSTANDING. CALL LIGHT IN REACH AND BED ALARM ON. DAUGHTER REMAINS AT BEDSIDE.
[2024-02-22 12:32] LABS: HEMOGLOBIN 9.9 g/dL (12.0-18.0); MCH 26.8 (27-36); RDW 14.3 (10.5-15.0)
[2024-02-22 12:34] LABS: BASOPHILS 0.4 % (0-2); EOSINOPHILS 0.9 % (0-6); HEMATOCRIT 29.1 % (35.0-50.0); LYMPHOCYTES 7.6 % (24-44); MCV 78.9 fl (81-99); MONOCYTES 8.1 % (0-12); PLATELET COUNT 93 K/uL (140-440); RBC 3.69 M/ul (4.3-5.7)
[2024-02-22 12:42] LABS: ALBUMIN 3.4 g/dL (3.4-5.0); ALBUMIN/GLOBULIN RATIO 0.85 (1.1-2.4); ANION GAP 15.9 (7-21); BILIRUBIN, TOTAL 1.1 ng/dL (0.2-1.0); BUN/CREATININE RATIO 14.28 (6.0-28.6); CALCIUM 8.7 mg/dL (8.5-10.1); CREATININE, SERUM 0.98 mg/dL (0.55-1.02); POTASSIUM 3.9 mmol/L (3.5-5.1); PROTEIN, TOTAL 7.4 g/dL (6.4-8.2)
[2024-02-22] MEDS ORDERED: GABAPENTIN 300 MG CAP PO SCH (13:00)
[2024-02-22] MEDS ORDERED: METOPROLOL TARTRATE 25 MG TAB PO SCH (13:00)
[2024-02-22] MEDS ORDERED: FAMOTIDINE 20 MG/ 2 ML VIAL IV SCH (13:00)
[2024-02-22] MEDS ORDERED: PANTOPRAZOLE SODIUM 40 MG TABEC PO SCH (13:00)
[2024-02-22] MEDS ORDERED: FUROSEMIDE 40 MG/4 ML VIAL IV SCH (13:00)
[2024-02-22] MEDS ORDERED: SPIRONOLACTONE 25 MG TAB PO SCH (13:00)
[2024-02-22] MEDS ORDERED: LACTULOSE 10 GM/15 ML ML PR SCH (13:15)
--- NOTE | 2024-02-22 13:19 | NUR ---
VISITED DURING SPIRITUAL CARE ROUNDS. PT RECEIVING NURSING CARE. DID NOT INTERRUPT. PROVIDED PRAYER.
[2024-02-22] MEDS ORDERED: HYDROmorphone HCL 1 MG/ML SYR ONE (13:25)
[2024-02-22] MEDS ORDERED: SODIUM CHLORIDE 0.9% 1,000 ML IV SCH (13:30)
[2024-02-22] MEDS ORDERED: SIMETHICONE 40 MG/0.6 ML ML PO PRN (13:45)
[2024-02-22] MEDS ORDERED: DICYCLOMINE HCL 10 MG CAP PO PRN (13:45)
--- NOTE | 2024-02-22 13:51 | NUR ---
MED REC COMPLETE.
--- NOTE | 2024-02-22 13:55 | NUR ---
CALLED DR ARAIZA TO CLARIFY WRITTEN ORDERS, IV FLUIDS TO BE NS AT 125MLS/HR, DILUADUD 0.1MG EVERY 3 HOURS PRN PAIN CLARIFIED TO BE CORRECT. DISCUSSED WITH DR ARAIZA PT DAUGHTER CONCERN FOR INCREASED ABD PAIN FROM BASELINE, DR ARAIZA STATED TO GIVEN PAIN MEDICATION INCLUDING DILUADID AND TYLENOL, DR ARAIZA STATES THAT IF PT CANNOT TAKE PO TYLENOL THEN IV TYLENOL. DR ARAIZA ALSO STATED TO GIVE BENTYL AND SIMETHICONE AND CONTINUE WITH LACTULOSE TO ASSIST WITH ABD PAIN. DR ARAIZA MADE AWARE PT MAY NOT BE ABLE TO TAKE PO MEDICATIONS, DR ARAIZA VERBALIZED UNDERSTANDING. CLARIFIED IF LASIX WAS TO BE PO OR IV, DR ARAIZA STATED SHE WOULD LIKELY START LASIX TOMORROW, NOT TODAY, MEDICATION HELD. NO FURTHER ORDERS AT THIS TIME.
[2024-02-22 14:23] VITALS: BP 150/65
--- NOTE | 2024-02-22 14:31 | NUR ---
UR CLINICAL REVIEW: [facility] [place] FOR LIVER DISEASE OBS 02/22/24 @ 0237 ORDER MATCHES STATUS AUTH PENDING CLINICAL REVIEW. CLINICALS FAXED TO [facility] PLAN TO DC TO HOME WHEN STABLE WITH DAUGHTER, CAREGIVER. 02/23/24
[2024-02-22 14:37] LABS: HEMATOCRIT 30.9 % (35.0-50.0); HEMOGLOBIN 10.6 g/dL (12.0-18.0); RBC 3.96 M/ul (4.3-5.7)
[2024-02-22 14:38] LABS: BASOPHILS 0.4 % (0-2); EOSINOPHILS 3.1 % (0-6); LYMPHOCYTES 17.9 % (24-44); MCH 26.8 (27-36); MCHC 34.3 g/dl (30-36); MONOCYTES 5.5 % (0-12); NEUTROPHILS 73.1 % (39-80); PLATELET COUNT 112 K/uL (140-440); RDW 14.3 (10.5-15.0)
[2024-02-22 14:40] LABS: ANION GAP 19.2 (7-21); BUN/CREATININE RATIO 11.66 (6.0-28.6); CALCIUM 9.3 mg/dL (8.5-10.1); CREATININE, SERUM 1.2 mg/dL (0.55-1.02); POTASSIUM 4.2 mmol/L (3.5-5.1); PROTEIN, TOTAL 8.2 g/dL (6.4-8.2)
[2024-02-22 14:41] LABS: ALBUMIN 3.8 g/dL (3.4-5.0); ALBUMIN/GLOBULIN RATIO 0.86 (1.1-2.4); BILIRUBIN, TOTAL 1.1 ng/dL (0.2-1.0)
[2024-02-22 14:44] LABS: BILIRUBIN, URINE NEGATIVE (negative); KETONE, URINE NEGATIVE (Negative)
[2024-02-22 14:45] LABS: BACTERIA, URINE 1+ /hpf (negative); BLOOD/HGB, URINE TRACE (Negative); CASTS, URINE NONE SEEN \\lpf; COLLECTION TYPE, URINE CLEAN CATCH; CRYSTALS, URINE NONE SEEN (0-1+); EPITHELIAL CELLS, URINE SQUAMOUS 3+ /lpf (0-1+); LEUK ESTERASE, URINE TRACE (negative); NITRITE, URINE NEGATIVE (negative); PH, URINE 6.5 (5-7); REFLEX CULTURE, URINE No (No); WHITE BLOOD CELLS, URINE 41-50 /HPF (0-5)
[2024-02-22 14:48] LABS: INFLUENZA B NAA NEGATIVE (NEGATIVE); RESPIRATORY SYNCYTIAL VIR NAA NEGATIVE (NEGATIVE)
--- NOTE | 2024-02-22 15:15 | NUR ---
INFORMED DR ARAIZA REGARDING PT LIQUID STOOL OF 1800MLS SINCE 1000, ORDERS TO CONTINUE WITH 2 MORE DOSES OF LACTULOSE EVERY 4HOURS, SKIP NOC DOSE AND RESUME IN THE AM. TELEPHONE ORDER READ BACK. NO FURTHER ORDERS AT THIS TIME.
--- NOTE | 2024-02-22 16:57 | NUR ---
LACTULOSE CT GIVEN PER ORDER, PT TOLERATED WELL. UP TO BSC WITH LIQUID STOOL. DAUGHTER AT BEDSIDE AND ASSISTING, PT FOLLOWING DIRECTION AT THIS TIME, ORIENTED TO SELF AND PLACE. PT BACK TO BED, BED ALARM ON AND DAUGHTER AT BEDSIDE.
[2024-02-22 17:49] VITALS: BP 134/59
--- NOTE | 2024-02-22 19:12 | NUR ---
SHIFT REPORT RECEIVED FROM LEON RN, PT ALERT, ATTEMPTING TO REST, DAUGHTER AT BEDSIDE AND ATTENTIVE TO PT'S NEEDS, PT ON ISOLATION FOR COVID POSITIVE, PT DENIES NEEDS AT THIS TIME.
--- NOTE | 2024-02-22 19:45 | NUR ---
PT ASSISTED UP TO BSC BY DAUGHTER, BACK TO BED, PT WITH C/O NAUSEA, PT PAINFUL REQUESTING PAIN MED AT THIS TIME.
--- NOTE | 2024-02-22 20:03 | NUR ---
RN TO ROOM, PT REQUESTING PAIN MED FOR LOWER ABDOMINAL PAIN 02/12, MEDICATED WITH DILAUDID 0.1MG IV PER ORDER, VS AND ACCUCHECK COMPLETED, BS 187, 2U SS INSULIN GIVEN PER ORDER, DAUGHTER REQUESTS TO HOLD OFF ON PO MEDS UNTIL AFTER LACTOLOSE EMEMA GIVEN, ASSESSMENT COMPLETED, IV PATENT LEFT AC, INFUSING NS AT 125ML/HR. HOB ELEVATED APPROX 25-30 DEGRESS, BED LOW POSITION, PT ALERT BUT LIMITED VERBAL EXCHANGE WITH NURSE. NOTED RIGHT FOOT SHAKING, [place] REPORTS SHE DOES THIS WHEN SHE IS IN PAIN.
[2024-02-22 20:19] VITALS: BP 161/62
[2024-02-22 21:45] VITALS: BP 158/58
--- NOTE | 2024-02-22 21:45 | NUR ---
RN RETURNED TO ROOM, VS DONE, PT GIVEN LACTULOSE ENEMA 300ML IN 200ML WATER, PT ABLE TO TOLERATED 250ML OF MIXED SOLUTION, PT ABLE TO RETAIN FOR A BRIEF TIME (APPROX 2-3 MINUTES), PT UP TO BS PASSED 450ML OF URINE AND LIQUID BROWN STOOL MIX, PT MEDICATED WITH TYLENOL PER ORDER PRIOR TO ENEMA FOR LOWER ABDOMINAL PAIN 04/15, BACK TO BED WITH DAUGHTER ASSIST, ATTEMPTING TO REST, IV PATENT. PT WITHOUT OTHER REQUESTS.
[2024-02-22 22:48] VITALS: BP 158/58
--- NOTE | 2024-02-22 23:06 | NUR ---
PT MEDICATED WITH DILAUDID 0.1MG IV FOR PAIN 7/10 IN LOWER ABDOMEN, PT RESTING QUIETLY, DAUGHTER STILL IN ROOM.
[2024-02-23] VITALS (7 sets, daily range): BP systolic 119–139; BP diastolic 52–66
--- NOTE | 2024-02-23 00:06 | NUR ---
TC TO DR ARAIZA TO OBTAIN INPATIENT ADMIT ORDER, RECEIVED, DISCUSSED PAIN MANGEMENT, STATES TO TRY USING BENTYL AND MYLICON ORDERED PRN IN ADDITION TO ORDERED DILAUDID.
--- NOTE | 2024-02-23 02:12 | NUR ---
PT AWAKEN FOR VS, VS STABLE, MEDICATED PER REQUEST FOR LOWER ABD PAIN WITH DILAUDID 0.1MG PER ORDER, PT FOLLOWS SIMPLE COMMANDS, IV PATENT, SITE INTACT.
--- NOTE | 2024-02-23 04:00 | NUR ---
PT APPEARS TO SLEEP, RESP EVEN AND REG, LAYING ON RIGHT SIDE.
--- NOTE | 2024-02-23 05:00 | NUR ---
PT UP TO BSC AND BACK TO BED. PT AND FAMILY STATE NO OTHER NEEDS AT THIS TIME. CALL LIGHT IN REACH.
--- NOTE | 2024-02-23 05:19 | NUR ---
PT RESTING QUIETLY, VS COMPLETED AND STABLE, PT MEDICATED FOR PAIN CONTROL PER DAUGHTERS REQUEST WITH DILAUDID 0.1MG IV, LAB IN FOR AM BLOOD DRAW.
[2024-02-23 05:37] LABS: BASOPHILS 0.5 % (0-2); EOSINOPHILS 3.3 % (0-6); HEMATOCRIT 28.1 % (35.0-50.0); HEMOGLOBIN 9.8 g/dL (12.0-18.0); LYMPHOCYTES 14.3 % (24-44); MCH 27.1 (27-36); MCHC 34.8 g/dl (30-36); MCV 77.8 fl (81-99); MONOCYTES 7.3 % (0-12); NEUTROPHILS 74.6 % (39-80); PLATELET COUNT 97 K/uL (140-440); RBC 3.61 M/ul (4.3-5.7); RDW 14.6 (10.5-15.0)
[2024-02-23 05:47] LABS: ALBUMIN 3.2 g/dL (3.4-5.0); ALBUMIN/GLOBULIN RATIO 0.82 (1.1-2.4); ANION GAP 13.7 (7-21); BILIRUBIN, TOTAL 1.2 ng/dL (0.2-1.0); BUN/CREATININE RATIO 8.13 (6.0-28.6); CALCIUM 8.1 mg/dL (8.5-10.1); CREATININE, SERUM 0.86 mg/dL (0.55-1.02); POTASSIUM 3.7 mmol/L (3.5-5.1); PROTEIN, TOTAL 7.1 g/dL (6.4-8.2)
--- NOTE | 2024-02-23 06:40 | NUR ---
PT RESTING WITH EYES CLOSED, DISCUSSED WITH PT'S DAUGHTER THAT IT WAS TIME FOR LACTULOSE ENEMA, DAUGHTER CONCERNED THAT PT IS SO "WIPED OUT" FROM GETTING UP AND DOWN TO [facility], ENEMA GIVEN WITH DAUGHTERS ASSIST, PT TOLERATED APPROX HALF OF THE DOSE, PT PAINFUL AFTER PASSING LIQUID STOOL, PT MEDICATED WITH BENTYL AND SIMETICONE PER ORDER TO ASSIST WITH LOWER ABD PAIN, PT BACK TO BED, SLEEPY, PT UNABLE TO STAND FOR STANDING SCALE, BED SCALE DONE.
[2024-02-23] MEDS ORDERED: LEVOTHYROXINE SODIUM 50 MCG TAB PO SCH (07:00)
--- NOTE | 2024-02-23 07:10 | NUR ---
REPORT RECIEVED FROM CRISTINA Sal RN. PT RESTING IN BED SEMI-FOWLERS. EYES CLOSED, RR EVEN AND UNLABORED. IV INFUSING WNL. PTs DAUGHTER IN ROOM RESTING ON COUCH. NO NEEDS IDENTIFIED AT THIS TIME. CALL LIGHT IN REACH. BED ALARM ON.
--- NOTE | 2024-02-23 08:00 | NUR ---
IN TO ADMINISTER MEDICATION, SEE MAR. PT LAYING IN BED AND SHAKES HEAD "YES" IN RESPONSE TO THIS RN ASKING IF PT IS OKAY WITH RECIEVING INSULIN IN ARM. PTs DAUGHTER IN ROOM. IV INFUSING WNL. PT AND PTs DAUGHTER DENY ANY OTHER NEEDS AT THIS TIME. CALL LIGHT IN REACH.
--- NOTE | 2024-02-23 09:50 | NUR ---
DR. ARAIZA TALKED TO THIS RN AND STATES "LETS GIVE THE PT 2L BOLUS OVER 2 HOURS OF NS NOW. HOLD THE LASIX AND SPIRONOLACTONE." VERBAL ORDERS VERIFIED WITH READBACK. DR. ARAIZA TO PLACE NEW ORDERS TO "SCHEDULE BENTYL AND SIMETHICONE." PER DR. ARAIZA "HOLD OFF ON LACTULOSE RIGHT NOW." VERIFIED WITH READBACK. PER DR. ARAIZA "HOLD THE METOPROLOL IF PTs BP IS LESS THAN 120/80." VERIFIED WITH READBACK. METOPROLOL HELD FOR PTs BP OF 138/56. ASSESSMENT COMPLETE. PT REPORTING PAIN 10/10 CRAFT. PRN PAIN MEDICAITON ADMINISTERED, SEE MAR. PT TAKES PO MEDICATIONS WITH NO ISSUES. PTs DAUGHTER IN ROOM. LUNG SOUNDS CLEAR. BOWEL TONES ACTIVE. ABD DISTENTION NOTED. ABD SOFT WITH PALPATION. ABD TENDS WITH PALPATION. PT REPORTING CHRONIC NUMBNESS AND TINGLING FROM NEUROPATHY. PEDAL PULSES PALPABLE AND STONG BILATERALLY. RADIAL PULSES PALPABLE AND STRONG BILATERALLY. IVs FLUSH WNL. IC IN LEFT AC INFUSING WNL. PT REPORTING NAUSEA. PRN MEDICATION ADMINISTERED, SEE MAR. PT AND PTs DAUGHTER DENY ANY OTHER NEEDS AT THIS TIME. CALL LIGHT IN REACH.
[2024-02-23] MEDS ORDERED: SODIUM CHLORIDE 0.9% 1,000 ML IV SCH ×2 (10:00→17:45)
[2024-02-23] MEDS ORDERED: INSULIN GL100 UNIT/2 SUB-Q (10:46)
[2024-02-23] MEDS ORDERED: FUROSEMIDE40 MG PO (10:49)
[2024-02-23] MEDS ORDERED: LORAZEPAM0.5 MG PO (10:51)
--- NOTE | 2024-02-23 12:45 | NUR ---
IN TO ANSWER CALL LIGHT. IV PUMP ALARMING, RESOLVED. NEW BAG OF FLUIDS STARTED, SEE MAR. PT REPORTING PAIN TO ABD 04/15 PRN PAIN MEDICATION ADMINISTERED, SEE MAR. HOT PACK PROVIDED. TISSUES PROVIDED. BSC EMPTIED. PTs DAUGHTER IN ROOM. PT AND PTs DAUGHTER DENY ANY OTHER NEEDS AT THIS TIME. CALL LIGHT IN REACH.
[2024-02-23] MEDS ORDERED: DICYCLOMINE HCL 10 MG CAP PO SCH (13:00)
[2024-02-23] MEDS ORDERED: FAMOTIDINE 20 MG/ 2 ML VIAL IV SCH (13:00)
[2024-02-23] MEDS ORDERED: FUROSEMIDE 40 MG/4 ML VIAL IV SCH (13:00)
[2024-02-23] MEDS ORDERED: SPIRONOLACTONE 25 MG TAB PO SCH (13:00)
[2024-02-23] MEDS ORDERED: D5W 1/2 NS + 10 KCL 1,000 ML IV SCH (13:00)
[2024-02-23] MEDS ORDERED: PANTOPRAZOLE SODIUM 40 MG TABEC PO SCH (13:00)
[2024-02-23] MEDS ORDERED: MAGNESIUM REPLACEMENT PROTOCOL ORAL/IV IV PRN (13:15)
[2024-02-23 13:19] LABS: MAGNESIUM 1.3 mg/dL (1.8-2.4)
[2024-02-23] MEDS ORDERED: LACTULOSE 10 GM/15 ML ML PR SCH (14:00)
--- NOTE | 2024-02-23 14:50 | NUR ---
MED REC COMPLETE
[2024-02-23] MEDS ORDERED: SIMETHICONE 40 MG/0.6 ML ML PO SCH (15:00)
[2024-02-23] MEDS ORDERED: MAGNESIUM SULFATE 2 GM/50 ML BAG IV ONE (15:00)
--- NOTE | 2024-02-23 15:07 | NUR ---
IN TO ADMINISTER MEDICATIONS, SEE MAR. PT TAKES PO MEDICATION WITH NO ISSUES. RECTAL LACTULOSE ADMINISTERED. PT CONTINUES TO REPORT ABD PAIN 04/15. ASSESSMENT COMPLETE. BOWEL TONES ACTIVE. ABD DISTENTION NOTED, MODERATE. ABD TENDERNESS WITH PALPATION ALL OVER ABD. PTs DAUGHTER IN ROOM ASKING IF PT IS GOING TO BE STARTED ON ABX PT STATES "THE DOCTOR SAID SHE THINKS THE PT HAS AN INFECTION IN HER GUT." [address] ARAIZA TO UPDATE ON PTs ABD DISTENTION AND PAIN. DR. ARAIZA TO PLACE NEW ORDERS FOR IMAGING AND INCREASE PRN PAIN MEDICATION. THIS RN ALSO ASKED TO CLARIFY WITH DR. ARAIZA IF ABX ARE GOING TO BE STARTED PTs DAUGHTER IS ASKING. PER DR. ARAIZA "NO, I THINK SHE MAY HAVE GASTROENTERITIS AND IT IS VIRAL." 155 PT AND PTs DAUGHTER UPDATED ON POC.
[2024-02-23] MEDS ORDERED: HYDROmorphone HCL 1 MG/ML SYR IV PRN (16:00)
--- NOTE | 2024-02-23 16:09 | NUR ---
IN TO ADMINISTER PRN PAIN MEDICATION. PT REPORTING PAIN 9/10 TO ABD. PT AND PTs DAUGHTER DENY ANY OTHER NEEDS AT THIS TIME. CALL LIGHT IN REACH.
--- NOTE | 2024-02-23 17:40 | NUR ---
THIS RN INFORMED DR. ARAIZA OF PTs IMAGING BEING AVAILABLE. VERBAL ORDERS FROM DR. ARAIZA. "GIVE THE PT ANOTHER 1L OF NS BOLUS OVER AND HOUR." VERIFIED WITH READBACK.
--- NOTE | 2024-02-23 17:51 | NUR ---
IN TO ADMINISTER MEDICATION, SEE MAR. PT TAKES PO MEDICATIONS WITH NO ISSUES. IV BOLUS STARTED, SEE MAR. PT REPORTING PAIN 02/12 TO ABD. OFFERED HOT PACK, PT DENIES AT THIS TIME. PTs DAUGHTER IN ROOM. IV INFUSING WNL. PT AND PTs DAUGHTER DENY ANY OTHER NEEDS AT THIS TIME. CALL LIGHT IN REACH.
--- NOTE | 2024-02-23 19:04 | NUR ---
BEDSIDE REPORT RECEIVED FROM SAMMI MAYFIELD, PT CURRENTLY BEING MEDICATED FOR PAIN PER ORDER BY SAMMI MAYFIELD, DAUGHTER REMAINS AT BEDSIDE, PLAN OF CARE DISCUSSED AND PLANS FOR PAIN MANGEMENT. PT RESTING QUIETLY ON RIGHT SIDE.
--- NOTE | 2024-02-23 21:34 | NUR ---
RN TO ROOM, VS COMPLETED, NOTED BP 123/56, METROPROLOL HELD PER CLINICAL JUDGEMENT, ASSESSMENT COMPLETED, OTHER RT MEDS GIVEN TO PT, IV SITE PATENT, DAUGHTER AT BEDSIDE AND SUPPORTIVE IN CARE, PT ATE JELLOW AND SOME JUICE WITH DAUGHTER ASSISTANCE, ACCUCHECK 165.
--- NOTE | 2024-02-23 22:10 | NUR ---
PT REPOSITIONED TO LEFT SIDE, LACTULOSE ENEMA GIVEN, MIXED WITH APPROX 250 ML OF WATER, PT ABLE TO RETAIN ALL BUT APPROX 100ML, PT ABLE TO RETAIN ENEMA FOR APPROX 4-6 MINUTES THEN ASSISTED UP TO BSC PER DAUGHTER, DAUGHTER STATES PT IS MORE ALERT, TRANSFERING BETTHER AND TAKING CLEAR LIQUIDS.
--- NOTE | 2024-02-23 22:39 | NUR ---
PT MEDICATED FOR ABDOMINAL DISCOMFORT WITH DILAUDID 0.5MG IV PER ORDER, IV SITE PATENT, PT RESTING, HOB ELEVATED APPROX 25-30 DEGREES, SIDE RAILS UP X 2.
[2024-02-24] VITALS (7 sets, daily range): BP systolic 115–152; BP diastolic 45–65
[2024-02-24] MEDS ORDERED: POTASSIUM CHLORIDE 20 MEQ/10 ML VIAL ONE (00:47)
--- NOTE | 2024-02-24 00:50 | NUR ---
PT RESTING QUIETLY, RESP EVEN AND REG, WITHOUT DISTRESS.
--- NOTE | 2024-02-24 00:59 | NUR ---
PT RESTING QUIETLY WITH EYES CLOSED, IVF CHANGED TO D5 1/2NS WITH 10MEQ KCL AT 125ML/HR, IV SITE PATENT.
--- NOTE | 2024-02-24 01:01 | NUR ---
PT RESTING QUIETLY, EYES OPEN BRIEFLY WITHOUT DISTRESS, IVF CHANGED TO ORDERED D51/2NS WITH 10MEQ KCL, RUNNING AT 125ML/HR. SITE INTACT.
--- NOTE | 2024-02-24 02:15 | NUR ---
PT APPEARS TO SLEEP, RESP EVEN AND REG, WITHOUT DISTRESS.
--- NOTE | 2024-02-24 03:10 | NUR ---
PT RESTING, VS DONE AND STABLE, AFEBRILE, PT NODS YES TO PAIN MEDICATION, MEDICATED WITH DILAUDID 0.5MG IV FOR COMFORT CONTROL, IV SITE PATENT, IVF INFUSING WELL, DAUGHTER ASLEEP ON COUCH. BSC EMPTIED FOR 600ML URINE AND LIQUID STOOL MIXED.
--- NOTE | 2024-02-24 03:44 | NUR ---
PT APPEARS TO SLEEP, RESP EVEN AND REG.
--- NOTE | 2024-02-24 05:15 | NUR ---
PT AWAKE, WITH DAUGHTERS ASSISTANCE, PT GIVEN LACTULOSE ENEMA, TOLERATED APPROX 500ML OF SOLUTION WITH 300ML LACTULOSE AND 300ML WATER, AFTER HOLDING SOLUTION FOR APPROX 5 MINUTES, PT UP TO BSC. DAUGHTER AT SIDE.
[2024-02-24 06:05] LABS: BASOPHILS 0.6 % (0-2); EOSINOPHILS 2.7 % (0-6); HEMATOCRIT 29.5 % (35.0-50.0); HEMOGLOBIN 9.9 g/dL (12.0-18.0); LYMPHOCYTES 19.7 % (24-44); MCH 26.7 (27-36); MCHC 33.6 g/dl (30-36); MCV 79.4 fl (81-99); MONOCYTES 6.8 % (0-12); NEUTROPHILS 70.2 % (39-80); PLATELET COUNT 100 K/uL (140-440); RBC 3.71 M/ul (4.3-5.7)
--- NOTE | 2024-02-24 06:09 | NUR ---
PER REQUEST OF PRIMARY RN CRISTINA, pt TOLERATING FULL LIQUD DIET AND HAD PUDDING EARLIER IN SHIFT PER DTR. DIET ADVANCED TO ADA DIET, BREAKFAST ORDER GIVEN TO KITCHEN.
[2024-02-24 06:18] LABS: ALBUMIN 3.3 g/dL (3.4-5.0); ALBUMIN/GLOBULIN RATIO 0.85 (1.1-2.4); ANION GAP 13.6 (7-21); BILIRUBIN, TOTAL 0.7 ng/dL (0.2-1.0); BUN/CREATININE RATIO 4.87 (6.0-28.6); CALCIUM 8.1 mg/dL (8.5-10.1); CREATININE, SERUM 0.82 mg/dL (0.55-1.02); POTASSIUM 3.6 mmol/L (3.5-5.1); PROTEIN, TOTAL 7.2 g/dL (6.4-8.2)
--- NOTE | 2024-02-24 07:04 | NUR ---
AM MED GIVEN, PT RESTING QUIETLY WHEN NOT DISTURBED.
--- NOTE | 2024-02-24 07:08 | NUR ---
Pt report received from TRAN Cat. Pt is resting in bed, lights off, eyes open, breathing regular, even, and non-labored, pt's daughter resting on the couch. Daughter states the pt has slept well and seems to be getting somewhat better. White board updated. Call light in reach. Pt daughter states there are no needs at this time.
--- NOTE | 2024-02-24 07:32 | NUR ---
ORDERS RECEIVED FROM DR ARAIZA FOR AMNONIA LEVEL TO BE DRAWN THIS AM, LAB NOTIFIED.
[2024-02-24] MEDS ORDERED: LACTATED RINGER'S 1,000 ML IV PRN (08:00)
[2024-02-24] MEDS ORDERED: MAGNESIUM SULFATE 2 GM/50 ML BAG IV ONE (09:00)
--- NOTE | 2024-02-24 09:24 | NUR ---
In with pt for med administration. Daughter at bedside. Dr. Lora in with pt. Dr. Lora will input orders for 2L LR to be infused over 2 hours, then an additional bolus 1L LR around 1700 hours with continuous D5 1/2 NS with 10MEQ K in between. Pt is resting with eyes closed. Call light in reach. Pt medicated per emar for pain 10 out of 10 in headadche and abdomen.
--- NOTE | 2024-02-24 10:40 | NUR ---
In with pt for lactulose [place] administration. Daughter is very helpful with her mother and assisted her into the appropriate position. Lactulose enema administered, approx 600ml of fluid total, pt was able to hold it for about 3 minutes before needing to evacuate her bowels. Pt was hands-on assisted to the BSC by her daughter, and eventually back to bed. Linen change done at this time. First liter of LR bolus started per emar. Pharmacy is aware that an additional liter of ordered fluids is needed (D5 1/2NS with 10meq K+). Side rails up x4, call light in reach. Pt was provided with sugar free chocolate pudding and sugar free orange jello at her request. Pt's daughter is spoon feeding the pt.
[2024-02-24] MEDS ORDERED: LACTATED RINGER'S 1,000 ML IV ONE (17:00)
--- NOTE | 2024-02-24 18:18 | NUR ---
Pt has been drowsy and non-energetic for the majority of this shift. Pt's daughter has been in with pt for most of the shift, feeding her, assisting her to and from the [facility] [place] [facility], wiping her bottom, and comforting her. Daughter states that the pt has been up in the chair this shift; however, I did not witness this. Pt is able to move herself around in bed, and is able to get up to the edge of the bed with minimal assistance and is able to ambulate a couple of steps unassisted when she has to use the commode in a hurry; however, her daughter is very hands on with her care. When physical therpy was in with pt, the daughter states that she is home alone overnight and walks in her sleep at times and has fallen when doing so; however, she also states that some days she can "get around just fine", when other days the daughter is bathing her, changing her, but she is not incontinent. The pt's daughter has requested "pain meds" for the patient twice this shift and the pt was medicated with 0.5mg IV dilaudid once this morning and once this afternoon, and with tylenol once this morning for 10 out of 10 headache and 10 out of 10 abdominal pain as she lay calmly in bed. The pt's lactulose enemas were not 100% administered, as the daughter asked the pt when there was about 8oz left if "you're done, mom?" and the pt said yes, both times. The second time, the pt tolerated all but about 2oz of the second dose of the day but was only able to hold it in for a couple of minutes (the first one she held in for only 3 minutes). The pt has been able to make it to the commode without accidents. She has been eating some food today (diabetic diet) (some scrambled eggs and toast for breakfast, about 30% of her lunch, and less of her dinner), she has had a sugar free jello and 3 sugar free chocolate puddings this shift in between meals.
--- NOTE | 2024-02-24 19:12 | NUR ---
BEDSIDE SHIFT REPORT RECEIVED FROM DIANA MAYFIELD, DAUGHTER GOING HOME FOR THE NIGHT, PT'S AT BEDSIDE, PT RESTING WITH HOB ELEVATED, AWAKE, WITHOUT REQUESTS AT THIS TIME.
--- NOTE | 2024-02-24 20:50 | NUR ---
RN TO ROOM, PT ALERT, AT BEDSIDE AND SUPPORTIVE, VS DONE AND STABLE, PT MEDICATED WITH DILAUDID 0.5MG IV FOR C/O PAIN IN LOWER ABDOMEN, DISCUSSED PLAN OF CARE AND NEED TO COMPLETE LACTULOSE ENEMA, PT NOT WANTING THIS, DISCUSSED THE IMPORTANCE OF THIS, PT AGREES, ASSESSMENT COMPLETED, PT GIVEN LACTULOSE ENEMA PER ORDER, LACTULOSE 300ML MIXED WITH 200ML OF WATER, PT ABLE TO TOLERATE MIXTURE EXCEPT FOR 100ML, PT RETAINED BRIEFLY, APPROX 3 MINUTES THEN UP TO BSC, ABLE TO TRANSFER WITH 1 PA, PT BACK TO BED AFTER A FEW MINUTES, PT GIVEN 2 U SS INSULIN FOR ACCUCHECK 217, IV SITE PATENT LEFT AC AND SL IN RIGHT HAND FLUSHES WELL, PT REQUESTING PUDDING, GIVEN, RT HS MEDS GIVEN, SIDE RAILS UP X 2, HOB ELEVATED APPROX 30 DEGREES, REMAINS IN COVID ISOLATION.
[2024-02-24] MEDS ORDERED: LACTOBACILLUS RHAMNOSUS GG 1 EACH CAP PO SCH (21:00)
--- NOTE | 2024-02-24 22:35 | NUR ---
PT REQUESTING BENADRYL FOR ITCHING ON ABDOMEN AND BACK, TC TO DR BAILEY, ORDERS RECEIVED AND ENTERED.
[2024-02-24] MEDS ORDERED: diphenhydrAMINE HCL 25 MG CAP PO PRN (22:45)
--- NOTE | 2024-02-24 22:45 | NUR ---
PT RESTING ON LEFT SIDE, REMAINS AWAKE, MEDICATED WITH BENADRYL 25 MG PO FOR C/O ITCHING ON BACK AND ABDOMEN. PT TALKING APPROPRIATELY TO RN, AT BEDSIDE, SUPPORTIVE, PT WITHOUT OTHER COMPLAINTS.
--- NOTE | 2024-02-24 23:35 | NUR ---
NEW BAG OF D5 1/2NS WITH 10MEQ OF KCL HUNG, INFUSING AT 125ML/HR, PT RESTING QUIETLY, WITHOUT REQUESTS AT THIS TIME.
--- NOTE | 2024-02-25 01:15 | NUR ---
PT AWAKE, TELE PADS REPLACED, PT DENIES NEEDS AT THIS TIME, PT APPEARS CALM, AT BEDSIDE AND SUPPORTIVE.
--- NOTE | 2024-02-25 02:34 | NUR ---
PT AWAKEN, DISCUSSED NEED TO GIVE ANOTHER LACTULOSE ENEMA, PT DESIRES PAIN MEDICATION FOR PAIN 03/15, ABDOMINAL, MEDICATED PER ORDER WITH DILAUDID 0.5MG IV.
[2024-02-25 02:38] VITALS: BP 132/41
--- NOTE | 2024-02-25 03:00 | NUR ---
PT AGREES TO ENEMA NOW, POSITIONED TO LEFT SIDE, 300ML LACTULOSE MIXED WITH 200ML WATER, PT ABLE TO HAVE 400ML INFUSED, PT ONLY ABLE TO RETAIN FOR 4 MINUTES, UP TO [facility], HAVE 600ML OUTPUT MIXED WITH GREENISH LIQUID STOOL, PT BACK TO BED, SITTING ON SIDE, REQUESTED PUDDING AND ICY POP, GIVEN, PT MORE ALERT AND TALKATIVE TONIGHT.
--- NOTE | 2024-02-25 03:32 | NUR ---
PT BACK TO BED, LAYING DOWN, WITHOUT REQUESTS AT THIS TIME.
--- NOTE | 2024-02-25 05:20 | NUR ---
LAB IN FOR AM BLOOD DRAW.
[2024-02-25 05:26] LABS: BASOPHILS 0.4 % (0-2); EOSINOPHILS 3.1 % (0-6); HEMATOCRIT 26.7 % (35.0-50.0); LYMPHOCYTES 23.9 % (24-44); MCH 27.1 (27-36); MCHC 33.9 g/dl (30-36); MCV 79.9 fl (81-99); NEUTROPHILS 66.6 % (39-80); PLATELET COUNT 96 K/uL (140-440); RBC 3.34 M/ul (4.3-5.7)
[2024-02-25 05:40] LABS: ALBUMIN/GLOBULIN RATIO 0.81 (1.1-2.4); ANION GAP 10.5 (7-21); BILIRUBIN, TOTAL 0.7 ng/dL (0.2-1.0); BUN/CREATININE RATIO 2.66 (6.0-28.6); CALCIUM 8.1 mg/dL (8.5-10.1); CREATININE, SERUM 0.75 mg/dL (0.55-1.02); POTASSIUM 3.5 mmol/L (3.5-5.1); PROTEIN, TOTAL 6.7 g/dL (6.4-8.2)
--- NOTE | 2024-02-25 06:53 | NUR ---
PT ASSISTED UP TO BSC, VOIDED AND STOOLED, BACK TO BED, C/O HEADACHE, REQUESTING PAIN MED, MEDICATED WITH DILAUDID 0.5MG IV, IV SITE PATENT, PT RESTING IN BED WITHOUT FURTHER REQUESTS.
--- NOTE | 2024-02-25 06:53 | NUR ---
PT AWAKE AND ALERT, DESIRES TO GO TO BSC, VOIDED AND STOOLED, LIQUID STOOL BROWN NOTED, PT BACK TO BED, C/O HEADACHE 03/15 REQUESTING MEDICATION, MEDICATED WITH DILAUDID 0.5MG, PT RESTING, IV SITE PATENT.
--- NOTE | 2024-02-25 07:07 | NUR ---
Pt report received from TRAN Cat. Pt is resting in bed, on her left side, rubbing her face. She is awake, alert, and oriented to person, place, month, and year. Pt's is asleep on the couch. Pt denies needs at this time but does complain of itching in her abdomen and back (for which she was given benadryl last night). Call light in reach, side rails up, bedside table in reach.
[2024-02-25 07:55] VITALS: BP 128/57
[2024-02-25] MEDS ORDERED: MAGNESIUM SULFATE 2 GM/50 ML BAG IV ONE (08:30)
--- NOTE | 2024-02-25 10:58 | NUR ---
PATIENT RESTING IN BED, EYES CLOSED. SPOUSE IN ROOM. STATES THEY LIVE IN APARTMENT AND HAVE STAIRS. STATES HE OR OTHER FAMILY MEMBERS ASSIST PATIENT TO NAVIGATE STAIRS. PATIENT HAS WALKER, CANE AND CPAP AT HOME. SPOUSE STATES CPAP MACHINE IS OLDER AND THEY HAVE DIFFICULTY FINDING PARTS. INFORMED PCP WILL HAVE TO ASSIST WITH OBTAINING A CPAP. VERBALIZES UNDERSTANDING. PATIENT DOES NOT DRIVE. SPOUSE OR CHILDREN PROVIDE TRANSPORTATION IF IT IS NEEDED. DENIES ANY FINANCIAL HARDSHIP AT THIS TIME. PATIENT'S SPOUSE STATES HE AND THEIR CHILDREN PROVIDE QUITE A BIT OF CARES FOR PATIENT AND DO NOT HAVE ANY NEEDS AT THIS TIME. HE PLANS TO TAKE PATIENT HOME AT [place].
--- NOTE | 2024-02-25 11:47 | NUR ---
Received verbal order from Dr. East authorizing Hydroxyzine 25mg PO Q6H PRN for itching.
[2024-02-25] MEDS ORDERED: hydrOXYzine pamoate 25 MG CAP PO PRN (12:00)
[2024-02-25 13:44] VITALS: BP 126/57
--- NOTE | 2024-02-25 15:43 | NUR ---
In with pt for med administration. Pt is A&O. Dr. East in with pt and pt's . Pt wishes to be discharged today and verbalizes understanding that she needs to continue the lactulose enemas at home and needs to hold them as long as she can. Pt's verbalizes understanding and states that he and their daughter help her at home with these.
[2024-02-25] MEDS ORDERED: DICYCLOMINE HCL10 MG PO (16:22)
[2024-02-25] MEDS ORDERED: CULTURELLE1 EACH PO (16:23)
[2024-02-25] MEDS ORDERED: HYDROXYZINE HCL25 MG PO (16:25)
[2024-02-25 17:17] VITALS: BP 141/62
== END 2024-02-25 17:43 | disposition home or self-care (01) | DRG 441 ==
LOC: ED 02:36 → MS 02:37
PROVIDERS: Internal Medicine; ADMIT Family Medicine; ATTEND Family Medicine
DX: K76.82 Hepatic encephalopathy (principal); U07.1 COVID-19; E72.20 Disorder of urea cycle metabolism, unspecified; E87.20 Acidosis, unspecified; K75.81 Nonalcoholic steatohepatitis (NASH); M79.7 Fibromyalgia; F25.9 Schizoaffective disorder, unspecified; K52.9 Noninfective gastroenteritis and colitis, unspecified; E11.9 Type 2 diabetes mellitus without complications; D69.6 Thrombocytopenia, unspecified; Z88.8 Allergy status to other drugs, medicaments and biological substances; Z88.0 Allergy status to penicillin; Z88.1 Allergy status to other antibiotic agents; Z88.2 Allergy status to sulfonamides; Z79.899 Other long term (current) drug therapy; Z79.890 Hormone replacement therapy; Z79.4 Long term (current) use of insulin; Z79.01 Long term (current) use of anticoagulants
CPT/HCPCS: 36415; 71045; 74177; 80053; 81001; 82140; 83605; 83690; 83735; 83880; 84100; 85025; 87502; 97161; A9270; J1170; J1815; J2765; J3475; J3480; J7030; J7121; Q0177; Q9967; U0002

== ENCOUNTER 2024-07-10 16:01 | Emergency (ER) | payer OTHER ==
[~2024-07-10] VITALS: Ht 162.6 cm; Wt 92.4 kg
[~2024-07-10 16:01] MED LIST changes: +CULTURELLE1 EACH PO; +DICYCLOMINE HCL10 MG PO; +FUROSEMIDE40 MG PO; +INSULIN GL100 UNIT/2 SUB-Q; +LORAZEPAM0.5 MG PO
[2024-07-10] MEDS ORDERED: [UNRECOGNIZED DRUG - OTHER] PO (16:15)
[2024-07-10] MEDS ORDERED: ondansetron HCL 4 MG/2 ML VIAL IV ONE (16:30)
[2024-07-10 16:31] LABS: BASOPHILS 0.5 % (0-2); EOSINOPHILS 2.7 % (0-6); HEMATOCRIT 35.4 % (35.0-50.0); HEMOGLOBIN 11.8 g/dL (12.0-18.0); MCH 26.6 (27-36); MCHC 33.4 g/dl (30-36); MCV 79.6 fl (81-99); MONOCYTES 7.9 % (0-12); NEUTROPHILS 65.9 % (39-80); PLATELET COUNT 98 K/uL (140-440); RBC 4.45 M/ul (4.3-5.7); RDW 17.7 (10.5-15.0)
[2024-07-10 16:45] LABS: INR 1.13 (0.80-1.30); PROTIME 13.8 Sec (11.2-14.2)
[2024-07-10] MEDS ORDERED: HYDROmorphone HCL 1 MG/ML SYR IV PRN (16:45)
[2024-07-10 16:50] LABS: ALBUMIN/GLOBULIN RATIO 0.89 (1.1-2.4); ANION GAP 13.6 (7-21); BILIRUBIN, TOTAL 0.7 ng/dL (0.2-1.0); BUN/CREATININE RATIO 11.21 (6.0-28.6); CALCIUM 9.4 mg/dL (8.5-10.1); CREATININE, SERUM 1.07 mg/dL (0.55-1.02); MAGNESIUM 1.7 mg/dL (1.8-2.4); POTASSIUM 4.6 mmol/L (3.5-5.1); PROTEIN, TOTAL 8.5 g/dL (6.4-8.2)
[2024-07-10 17:33] LABS: BILIRUBIN, URINE NEGATIVE (negative); BLOOD/HGB, URINE NEGATIVE (Negative); KETONE, URINE NEGATIVE (Negative); LEUK ESTERASE, URINE NEGATIVE (negative); NITRITE, URINE NEGATIVE (negative); PH, URINE 6.5 (5-7)
[2024-07-10] MEDS ORDERED: IBU600 MG PO (19:02)
[2024-07-10] MEDS ORDERED: TRAMADOL HCL50 MG PO (19:02)
[2024-07-10] MEDS ORDERED: PEPCID20 MG PO (19:02)
[2024-07-10 19:20] VITALS: BP 119/61
== END 2024-07-10 19:20 | disposition home or self-care (01) ==
LOC: ED 16:01
PROVIDERS: Emergency Medicine
DX: K74.60 Unspecified cirrhosis of liver (principal); E11.65 Type 2 diabetes mellitus with hyperglycemia; Z79.4 Long term (current) use of insulin; Z79.899 Other long term (current) drug therapy; Z88.5 Allergy status to narcotic agent; Z88.0 Allergy status to penicillin; Z88.1 Allergy status to other antibiotic agents; Z91.013 Allergy to seafood; Z88.8 Allergy status to other drugs, medicaments and biological substances
CPT/HCPCS: 36415; 74176; 80053; 81003; 82140; 83690; 83735; 84702; 84703; 85025; 85610; 96374; 96375; 99284-25; J1171; J2405

== ENCOUNTER 2024-12-12 13:51 | Emergency (ER) | payer OTHER ==
[~2024-12-12] VITALS: Ht 162.6 cm; Wt 91.8 kg
[~2024-12-12 13:51] MED LIST changes: +IBU600 MG PO; +PEPCID20 MG PO; +TRAMADOL HCL50 MG PO; +[UNRECOGNIZED DRUG - OTHER] PO
[2024-12-12] MEDS ORDERED: IBLOOD GLUCOSE TEST STRIP 1 EA TEST VI ONE (14:15)
[2024-12-12 14:29] LABS: BASOPHILS 0.5 % (0-2); HEMATOCRIT 31.2 % (35.0-50.0); HEMOGLOBIN 10.9 g/dL (12.0-18.0); LYMPHOCYTES 23.9 % (24-44); MCH 26.9 (27-36); MCHC 34.8 g/dl (30-36); MCV 77.4 fl (81-99); MONOCYTES 6.3 % (0-12); NEUTROPHILS 66.3 % (39-80); PLATELET COUNT 87 K/uL (140-440); RBC 4.04 M/ul (4.3-5.7); RDW 16.6 (10.5-15.0)
[2024-12-12 14:47] LABS: ALBUMIN 3.7 g/dL (3.4-5.0); ALBUMIN/GLOBULIN RATIO 0.93 (1.1-2.4); ANION GAP 14.2 (7-21); BILIRUBIN, TOTAL 0.7 mg/dL (0.2-1.0); BUN/CREATININE RATIO 14.43 (6.0-28.6); CALCIUM 9.3 mg/dL (8.5-10.1); CREATININE, SERUM 0.97 mg/dL (0.55-1.02); POTASSIUM 4.2 mmol/L (3.5-5.1); PROTEIN, TOTAL 7.7 g/dL (6.4-8.2)
[2024-12-12] MEDS ORDERED: diphenhydrAMINE HCL 50 MG/ML VIAL IV ONE (15:15)
[2024-12-12] MEDS ORDERED: PROCHLORPERAZINE EDISYLATE 10 MG/2 ML VIAL IV ONE (15:15)
[2024-12-12] MEDS ORDERED: HYDROmorphone HCL 1 MG/ML SYR IV ONE (19:15)
[2024-12-12] MEDS ORDERED: ondansetron HCL 4 MG/2 ML VIAL IV ONE (19:15)
[2024-12-12] MEDS ORDERED: CARAFATE1 GM PO (19:18)
[2024-12-12 20:58] VITALS: BP 117/85
== END 2024-12-12 19:52 | disposition home or self-care (01) ==
LOC: ED 13:51
PROVIDERS: Emergency Medicine
DX: R10.33 Periumbilical pain (principal); Z88.1 Allergy status to other antibiotic agents; Z88.8 Allergy status to other drugs, medicaments and biological substances; Z88.5 Allergy status to narcotic agent; Z79.899 Other long term (current) drug therapy
CPT/HCPCS: 74177; 80053; 82140; 84484; 85025; 85060; 96375; 99284-25; J0780; J1171; J1200; J2405; Q9967

== ENCOUNTER 2025-02-16 15:08 | Emergency (ER) | payer OTHER ==
[~2025-02-16] VITALS: Ht 162.6 cm; Wt 90.0 kg
[~2025-02-16 15:08] MED LIST changes: +CARAFATE1 GM PO
--- OUTSIDE RECORDS SUMMARY | 2025-02-16 15:15 | XMS ---
PreManage Notification: TONI BAER Security Vamp Seamer Events No recent Security Events currently on file CRITERIA MET - [facility] - 2 Visits in 30 Days CARE PROVIDERS -, [facility] Dentist: Account Review Specialist Current [place] PHONE: [phone] -, [facility]- Dentist: Account Review Specialist Current [facility] PHONE: [phone] [facility]: [facility] Current FAMILY PHONE: [phone] FRANCISCO Sol Nurse Practitioner: Family Current PHONE: Unknown Gin Ponce Battery Container Inspector/Sales Marketing Director Current PHONE: [phone] WYATT BULLOCK [facility] Current PHONE: Unknown Jenifer has no Care Guidelines for this patient. Jaky VISIT COUNT (12 MO.) [facility] NOTE: Visits indicate total known visits. ED/UCC VISIT TRACKING (12 MO.) 02/16/2025 15:09 ESTELA [facility] [place] TYPE: Emergency COMPLAINT: - BLURRED VISION, HEADACHE 02/09/2025 19:46 [facility] [place] TYPE: Emergency DIAGNOSES: - Epigastric pain - Esophageal varices without bleeding - Other pancytopenia - Other specified postprocedural states - Portal vein thrombosis - ABD PAIN VOMITING SCOPE TODAY 12/12/2024 13:51 [facility] [place] TYPE: Emergency COMPLAINT: - HEADACHE DIAGNOSES: - Allergy status to narcotic agent - Allergy status to other antibiotic agents - Allergy status to other drugs, medicaments and biological substances - 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 - Periumbilical pain 07/10/2024 16:01 [facility] [place] TYPE: Emergency COMPLAINT: - ABDOMINAL PAIN DIAGNOSES: - Allergy status to narcotic agent - Allergy status to other antibiotic agents - Allergy status to other drugs, medicaments and biological substances - Allergy status to penicillin - Allergy to seafood - terminal computer operator (current) use of insulin - Other fpc (current) drug therapy - Type 2 diabetes mellitus with hyperglycemia - Unspecified abdominal pain - Unspecified cirrhosis of liver 02/22/2024 02:36 [facility] [place] TYPE: Emergency COMPLAINT: - ABD PAIN INPATIENT VISIT TRACKING (12 MO.) 02/22/2024 18:00 ESTELA [facility] [place] TYPE: Medical Surgical COMPLAINT: - HEPATIC ENCEPHALOPATHY DIAGNOSES: - Acidosis, unspecified - Acidosis, unspecified - Allergy status to other antibiotic agents - Allergy status to other antibiotic agents - Allergy status to other drugs, medicaments and biological substances - Allergy status to other drugs, medicaments and biological substances - Allergy status to penicillin - Allergy status to penicillin - Allergy status to sulfonamides - Allergy status to sulfonamides - COVID-19 - COVID-19 - Disorder of urea cycle metabolism, unspecified - Disorder of urea cycle metabolism, unspecified - Fibromyalgia - Fibromyalgia - Hepatic encephalopathy - Hormone replacement therapy - Hormone replacement therapy - terminal computer operator (current) use of anticoagulants - nursing home (current) use of anticoagulants - terminal computer operator (current) use of insulin - terminal computer operator (current) use of insulin - Nonalcoholic steatohepatitis (OZUNA) - Nonalcoholic steatohepatitis (OZUNA) - Noninfective gastroenteritis and colitis, unspecified - Noninfective gastroenteritis and colitis, unspecified - 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
[2025-02-16] MEDS ORDERED: ELIQUIS5 MG PO (15:57)
[2025-02-16] MEDS ORDERED: SODIUM CHLORIDE 0.9% 1,000 ML IV PRN (16:15)
[2025-02-16] MEDS ORDERED: METOCLOPRAMIDE HCL 10 MG/2 ML SDV IV ONE (16:15)
[2025-02-16] MEDS ORDERED: SODIUM CHLORIDE 0.9% 1,000 ML IV ONE (19:45)
[2025-02-16] MEDS ORDERED: MORPHINE SULFATE 4 MG/ML VIAL IV ONE (19:45)
[2025-02-16 20:10] LABS: MCH 27.2 PG (25.6-32.2); MCHC 33.3 g/dL (32.2-35.5); MCV 81.7 fL (79.4-94.8); RBC 4.04 M/uL (3.93-5.22)
[2025-02-16 20:26] LABS: ALT (SGPT) 26.0 U/L (14-59); AST (SGOT) 30.0 U/L (15-37); EOSINOPHILS, MANUAL DIFF 1; GLOMERULAR FILTRATION RATE,EST 70.0 mL/min (>60); LYMPHOCYTES, MANUAL DIFF 37; MONOCYTES, MANUAL DIFF 2; NEUTROPHILS, MANUAL DIFF 60; PROTEIN, TOTAL 7.8 g/dL (6.4-8.2); UREA NITROGEN 9.0 mg/dL (7-18)
[2025-02-16 21:35] LABS: BLOOD/HGB, URINE NEGATIVE (Negative); KETONE, URINE NEGATIVE (Negative); LEUK ESTERASE, URINE NEGATIVE (negative); NITRITE, URINE NEGATIVE (negative)
[2025-02-16] MEDS ORDERED: BUTALB-ACETAMI1 EACH PO (21:54)
[2025-02-16] MEDS ORDERED: HYDROmorphone HCL 1 MG/ML SYR IV ONE (22:00)
[2025-02-16] MEDS ORDERED: APIXABAN 5 MG TAB PO ONE (22:00)
[2025-02-16] MEDS ORDERED: ONDANSETRON 4 MG HOME.PACK SL ONE (22:00)
[2025-02-16 22:52] VITALS: BP 125/65
== END 2025-02-16 22:52 | disposition home or self-care (01) ==
LOC: ED 15:08
PROVIDERS: Emergency Medicine
DX: G43.909 Migraine, unspecified, not intractable, without status migrainosus (principal); R10.13 Epigastric pain; E11.42 Type 2 diabetes mellitus with diabetic polyneuropathy; E78.00 Pure hypercholesterolemia, unspecified; K21.9 Gastro-esophageal reflux disease without esophagitis; E03.9 Hypothyroidism, unspecified; Z79.4 Long term (current) use of insulin; Z79.899 Other long term (current) drug therapy; Z88.0 Allergy status to penicillin; Z88.1 Allergy status to other antibiotic agents; Z88.5 Allergy status to narcotic agent; Z91.018 Allergy to other foods; Z88.8 Allergy status to other drugs, medicaments and biological substances
CPT/HCPCS: 36415; 70450; 74177; 80053; 81003; 83690; 85025; 96375; 99284-25; A9270; J1171; J1200; J2405; J2765; J7030; Q9967